=== PATIENT | female | born 1940 | race Caucasian/White ===

== ENCOUNTER 2019-04-04 21:06 | Observation (INO) | payer MEDICARE, SELFPAY ==
--- NOTE | ~2019-04-04 | MR_ITS ---
EXAMINATION: MR brain IAC wo/w con DATE: 04/05/2019 13:05 INDICATION: Vertigo. TECHNIQUE: Magnetic resonance imaging (MRI) of the brain, brainstem, and internal auditory canals was performed without and with 20 mL MultiHance intravenous contrast. Sequences included sagittal and ax ial T1-weighted FSE, axial diffusion-weighted FS EPI, axial T2*-weighted GRE, axial T2-weighted FLAIR Propeller, axial T2-weighted Propeller, small upkgw-my-xnkv coronal FIESTA, small suzuy-ri-ofsx farnaz nal T1-weighted FSE, and small frdul-bv-otgb axial T1-weighted SPGR. Postcontrast sequences included axial T1-weighted FSE, small clkqc-yt-shhp coronal T1-weighted FSE, and small fthkp-fv-etur axial T1- weighted SPGR. Apparent diffusion coefficient (ADC) maps were created. COMPARISON: Head CT 04/04/2019 FINDINGS: There are scattered areas of nonspecific increased T2-weighted signal intensity in the cere bral white matter, which is within normal limits for the patient's age. There is no intracranial hemo rrhage, acute infarction, or abnormal intracranial mass lesion. The ventricles are normal in size. Th e paranasal sinuses are clear. The orbits are normal. The mastoid air cells are normal. The internal auditory canals and inner and middle ears are normal. IMPRESSION: 1. Normal aging brain. Reviewed, dictated and finalized at location A. [employer]ANT IMPRESSION: 1. Normal aging brain.
--- NOTE | ~2019-04-04 | NM_ITS ---
EXAMINATION: NM radha stress w perfusion DATE: 04/05/2019 15:04 INDICATION: Central chest pressure. TECHNIQUE: Rest images were obtained following intravenous administration of 8.9 mCi Tc99m tetrofosmi n (Myoview). The patient was infused intravenously with Lexiscan (regadenoson). Then, 26.7 mCi Tc99m tetrofosmin (Myoview) was administered intravenously, and stress images were obtained. Data was recon structed into short axis and horizontal and vertical long axis SPECT images. Gated SPECT images were also obtained. COMPARISON: None. FINDINGS: There is no definite reversible or fixed perfusion abnormality to suggest ischemia or infar ction. There is no segmental wall motion abnormality. Left ventricular ejection fraction measures > 70%. IMPRESSION: 1. No definite ischemia or infarct. 2. Normal left ventricular ejection fraction measuring >70%. Reviewed, dictated and finalized at location A. SE PACKER
--- NOTE | ~2019-04-04 | XR_ITS ---
XR chest 2V 04/04/2019 21:47 Indication: Midsternal chest pain and dizziness Procedure: 2 view chest Comparison: Comparison to multiple prior studies sequentially, with oldest reviewed study dated 05/03. Findings: Stable cardiomediastinal silhouette. No acute focal pneumonia, edema or effusion. No pleura l effusion, edema or pneumothorax. No focal pneumonia. 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 Impression: 1: No acute cardiopulmonary disease. Reviewed, dictated and finalized at location A. RAL EDUCATION INSTRUCTOR Impression: 1: No acute cardiopulmonary disease.
--- NOTE | ~2019-04-04 | CT_ITS ---
EXAMINATION: CT brain wo con DATE: 04/04/2019 23:41 INDICATION: Dizziness. TECHNIQUE: Computed tomography (CT) of the head was performed without intravenous contrast. The dose- length product was 681.00 mGy-cm. The mA was adjusted according to patient size. Iterative reconstruc tion technique was employed. COMPARISON: CT dated 05/01/2018 FINDINGS: Brain parenchymal volume is normal for age. Normal ehrnandez-white differentiation. No acute int racranial hemorrhage, infarction, mass or mass effect. No ventriculomegaly or midline shift. Basilar cisterns are patent. Paranasal sinuses and mastoids are pneumatized. No depressed skull fractures. Mi dline sagittal images demonstrate a normal corpus callosum and craniovertebral junction. There are sc attered mild periventricular and subcortical white matter changes, most likely related to small vesse l ischemic disease (microangiopathy). IMPRESSION: 1. No acute intracranial abnormality. 2: Chronic age-related findings. Reviewed, dictated and finalized at location A. LINE FIELD OPERATOR
[2019-04-04 21:09] VITALS: BP 112/57; PULSE 94; RESP 16; TEMP 36.2; O2SAT 98
--- NOTE | 2019-04-04 21:09 | ECG_ITS ---
Measurements Intervals [place] Rate: 85 P: -71 NH: 108 QRS: 48 QRSD: 92 T: 21 QT: 332 QTc: 396 Interpretive Statements SINUS RHYTHM ATRIAL COUPLET AND ATRIAL PREMATURE COMPLEXES LOW QRS VOLTAGE IN PRECORDIAL LEADS BASELINE ARTIFACT- I, III, AVR, AVL, AVF ABNORMAL ECG Electronically Signed On 04-05-2019 6:55:03 INSURANCE CLAIM APPROVER by Hung [employer]
[2019-04-04 21:21] LABS: Basophils Absolute Auto 0.1 K/mm3 (0.0-0.1); Basophils Percent Auto 0.6 % (0.2-1.2); Eosinophils Absolute Auto 0.4 K/mm3 (0-0.3); Eosinophils Percent Auto 4.8 % (0-4.4); Hematocrit 42.3 % (37.0-47.0); Hemoglobin 13.6 g/dL (12.0-15.0); Immature Granulocyte Absolute 0.02 K/mm3 (0.00-0.031); Immature Granulocyte Percent A 0.2 % (0-0.5); Lymphocytes Absolute Auto 2.12 K/mm3 (0.9-3.2); Lymphocytes Percent Auto 26.1 % (18.3-44.2); Mean Corpuscular HGB Conc 32.2 g/dl (32-36); Mean Corpuscular Hemoglobin 30.6 pg (26-34); Mean Corpuscular Volume 95.1 fl (80-100); Mean Platelet Volume 11.7 fl (7.4-10.4); Monocytes Absolute Auto 0.6 K/mm3 (0.1-0.6); Monocytes Percent Auto 7.9 % (2.6-8.5); Neutrophils Absolute Auto 4.9 K/mm3 (1.3-6.7); Neutrophils Percent Auto 60.4 % (45.5-73.1); Platelet Count Result 304 k/mm3 (150-375); Red Blood Count 4.45 M/mm3 (4.2-5.4); Red Cell Distribution Width 13.5 % (11.5-14.5); White Blood Count 8.1 K/mm3 (4.5-10.0)
[2019-04-04 21:31] LABS: Prothrombin Time 12.9 Seconds (11.1-14.7)
[2019-04-04 21:32] LABS: Partial Thromboplastin Time 24.1 SECONDS (22.3-36.8)
[2019-04-04 21:33] LABS: Blood Urea Nitrogen 21 mg/dL (7-17); Calcium 10.3 mg/dL (8.4-10.2); Carbon Dioxide 26 mmol/L (22-30); Chloride 100 mmol/L (98-107); Estimated CRCL calculation 46 ml/min; Estimated Glomerular Filt Rate 54; Glucose 159 mg/dL (65-105); Potassium 3.7 mmol/L (3.4-5.0); Sodium 138 mmol/L (137-145)
[2019-04-04 21:45] LABS: Troponin I < 0.012 ng/mL (0.000-0.034)
--- NOTE | 2019-04-04 22:31 | ED.GENADULT ---
HPI - General Adult General Chief complaint: Unspecified Stated complaint: dizzyness Time Seen by Provider: 04/04/19 22:31 Related Data Home Medications Medication Instructions Recorded Confirmed calcium carbonate [Calcium 600] 600 mg PO DAILY 02/19/19 02/19/19 carvedilol 3.125 mg PO BID 02/19/19 02/19/19 gemfibrozil 600 mg PO BID 02/19/19 02/19/19 ssjugbnb-tqgj-jvqhsx-hyalur ac 1 cap PO BID 02/19/19 02/19/19 levothyroxine 75 mcg PO DAILY 02/19/19 02/19/19 lisinopril 10 mg PO DAILY 02/19/19 02/19/19 lovastatin 40 mg PO DAILY 02/19/19 02/19/19 metformin 500 mg PO DAILY 02/19/19 02/19/19 paroxetine HCl 20 mg PO DAILY 02/19/19 02/19/19 Allergies Allergy/AdvReac Type Severity Reaction Status Date / Time niacin Allergy Severe Hives / Verified 04/04/19 21:13 Red Face fluoxetine Allergy Mild Hives Verified 04/04/19 21:13 Sulfa (Sulfonamide Allergy Unknown LIP Verified 04/04/19 21:13 Antibiotics) SWELLING PMFSH Social History Social History Smoking status: Never smoker Second hand tobacco smoke exposure: Yes ( smoked for 36 yrs) Alcohol intake: never Substance use: never Gender identity (if verbalized by the patient): Female Spiritual care concerns: No Agree to blood products: No Course Vital Signs Vital signs: Vital Signs Temperature 36.2 C L 04/04/19 21:09 Pulse Rate 94 04/04/19 21:09 Respiratory Rate 16 04/04/19 21:09 Blood Pressure 112/57 L 04/04/19 21:09 Pulse Oximetry 98 04/04/19 21:09 Temperature 36.2 C L 04/04/19 21:09 Pulse Rate 94 04/04/19 21:09 Respiratory Rate 16 04/04/19 21:09 Blood Pressure 112/57 L 04/04/19 21:09 Pulse Oximetry 98 04/04/19 21:09 Medical Decision Making Vital Signs Vital Signs: Vital Signs Temperature 36.2 C L 04/04/19 21:09 Pulse Rate 94 04/04/19 21:09 Respiratory Rate 16 04/04/19 21:09 Blood Pressure 112/57 L 04/04/19 21:09 Pulse Oximetry 98 04/04/19 21:09 Temperature 36.2 C L 04/04/19 21:09 Pulse Rate 94 04/04/19 21:09 Respiratory Rate 16 04/04/19 21:09 Blood Pressure 112/57 L 04/04/19 21:09 Pulse Oximetry 98 04/04/19 21:09 Lab Data Result diagrams: 04/04/19 21:14 04/04/19 21:14 Labs: Lab Results 04/04/19 04/04/19 04/04/19 Range/Units 21:14 21:14 21:14 WBC 8.1 (4.5-10.0) K/mm3 RBC 4.45 (4.2-5.4) M/mm3 Hgb 13.6 (12.0-15.0) g/dL Hct 42.3 (37.0-47.0) % MCV 95.1 (80-100) fl MCH 30.6 (26-34) pg MCHC 32.2 (32-36) g/dl RDW 13.5 (11.5-14.5) % Plt Count 304 (150-375) k/mm3 MPV 11.7 H (7.4-10.4) fl Immature Gran % (Auto) 0.2 (0-0.5) % Neut % (Auto) 60.4 (45.5-73.1) % Lymph % (Auto) 26.1 (18.3-44.2) % [place] % (Auto) 7.9 (2.6-8.5) % Eos % (Auto) 4.8 H (0-4.4) % Baso % (Auto) 0.6 (0.2-1.2) % Lymph # (Auto) 2.12 (0.9-3.2) K/mm3 [place] # (Auto) 0.6 (0.1-0.6) K/mm3 Eos # (Auto) 0.4 H (0-0.3) K/mm3 Baso # (Auto) 0.1 (0.0-0.1) K/mm3 Abs Immat Gran (auto) 0.02 (0.00-0.031) K/mm3 Absolute Neuts (auto) 4.9 (1.3-6.7) K/mm3 Absolute Nucleated RBC 0.0 (0.0-0.012) K/mm3 Nucleated RBC % 0.0 (0.0-0.2) % PT 12.9 (11.1-14.7) Seconds INR 1.0 APTT 24.1 (22.3-36.8) SECONDS Sodium 138 (137-145) mmol/L Potassium 3.7 (3.4-5.0) mmol/L Chloride 100 (98-107) mmol/L Carbon Dioxide 26 (22-30) mmol/L BUN 21 H D (7-17) mg/dL Creatinine 1.00 (0.7-1.0) mg/dL Estim Creat Clear Calc 46 ml/min Estimated GFR 54 L (59 - ) Glucose 159 H (65-105) mg/dL Calcium 10.3 H (8.4-10.2) mg/dL Troponin I < 0.012 (0.000-0.034) ng/mL Discharge Plan Discharge Prescriptions: No Action metformin 500 mg tablet 500 mg PO DAILY RF: 0 lovastatin 40 mg tablet 40 mg PO DAILY RF: 0 carvedilol 3.125 mg tablet 3.125 mg PO BID RF: 0 levothyroxine 75
--- NOTE | 2019-04-04 22:34 | ED.DIZZY ---
HPI - Dizziness General Chief Complaint: Dizziness Stated Complaint: dizzyness Time Seen by Provider: 04/04/19 22:31 Source: patient and RN notes reviewed Mode of arrival: other Limitations: no limitations History of Present Illness HPI Narrative: Pt is a 78 y/o female who presents to the ED with c/o dizziness that began a few days ago after a headache. Pt notes that her dizziness is worsened whenever she tries to sit up. She describes her dizziness as the room spinning. She notes that her last stress test was 27 years ago. Pt also reports chest pain that radiates to her right arm, but denies a fever. MD elicited complaint: dizziness Onset (ago): day(s) Timing: unsure (still present) Description: room spinning Exacerbating factors: change in body position Associated symptoms: denies other symptoms Related Data Home Medications Medication Instructions Recorded Confirmed calcium carbonate [Calcium 600] 600 mg PO DAILY 02/19/19 02/19/19 carvedilol 3.125 mg PO BID 02/19/19 02/19/19 gemfibrozil 600 mg PO BID 02/19/19 02/19/19 cjefpaue-iuqh-izqsvo-hyalur ac 1 cap PO BID 02/19/19 02/19/19 levothyroxine 75 mcg PO DAILY 02/19/19 02/19/19 lisinopril 10 mg PO DAILY 02/19/19 02/19/19 lovastatin 40 mg PO DAILY 02/19/19 02/19/19 metformin 500 mg PO DAILY 02/19/19 02/19/19 paroxetine HCl 20 mg PO DAILY 02/19/19 02/19/19 Allergies Allergy/AdvReac Type Severity Reaction Status Date / Time niacin Allergy Severe Hives / Verified 04/04/19 21:13 Red Face fluoxetine Allergy Mild Hives Verified 04/04/19 21:13 Sulfa (Sulfonamide Allergy Unknown LIP Verified 04/04/19 21:13 Antibiotics) SWELLING Review of Systems Review of Systems: All systems reviewed & are unremarkable except as noted in HPI and below Constitutional: Constitutional: Denies fever(s) Cardiovascular: Cardiovascular: Reports chest pain (that radiates to her right arm) Neurologic: Reports dizziness PMFSH Social History Social History Smoking status: Never smoker Second hand tobacco smoke exposure: Yes ( smoked for 36 yrs) Alcohol intake: never Substance use: never Gender identity (if verbalized by the patient): Female Spiritual care concerns: No Agree to blood products: No Exam Const: General: no acute distress and alert Orientation/consciousness: patient oriented x3 HENMT: Head: normal to inspection Eyes: Conjunctivae: conjunctivae normal Pupils: Equal, round and reactive pupils present EOM: EOMs intact bilaterally Neck: Neck: normal visual inspection Chest: Chest palpation & inspection: normal inspection of the chest Resp: Effort & Inspection: normal respiratory effort Auscultation: clear to auscultation bilaterally Cardio: Rate: regular rate GI: Auscultation: normal bowel sounds : General: Yes no CVA tenderness Back/Spine/Pelvis: Back: no CVA tenderness Skin: General skin exam: normal color Neuro: General: patient oriented x3 and moves all extremities Extrem: General: normal to inspection Course Course Emergency Course: in patient at this time has no pain she states that this pain is episodic in nature. I discussed EKG, CT and lab findings with the patient and the family. Will admit to the hospital for chest pain rile out. Vital Signs Vital signs: Vital Signs Temperature 36.2 C L 04/04/19 21:09 Pulse Rate 94 04/04/19 21:09 Respiratory Rate 16 04/04/19 21:09 Blood Pressure 112/57 L 04/04/19 21:09 Pulse Oximetry 98 04/04/19 21:09 Temperature 36.2 C L 04/04/19 21:09 Pulse Rate 84 04/04/19 23:06 Respiratory Rate 20 04/04/19 23:06 Blood Pressure 104/53 L 04/04/19 23:06 Pulse Oximetry 94 04/04/19 23:06 MDM - Dizziness Lab Data Result diagrams: 04/04/19 21:14 04/04/19 21:14 Labs: Lab Results 04/04/19 04/04/19 04/04/19 Range/Units 21:14 21:14 21:14 WBC 8.1 (4.5-10.0) K/mm3 RBC 4.45
[2019-04-04] MEDS: ASPIRIN 81 MG CHEWABLE TABLET 324 MG PO (23:02)
[2019-04-04 23:06] VITALS: BP 104/53; PULSE 84; RESP 20; O2SAT 94
[2019-04-05] VITALS (15 sets, daily range): BP systolic 99–153; BP diastolic 44–68; PULSE 73–103; RESP 18–24; TEMP 36.2–36.7; O2SAT 93–99; BMI 39.4
--- NOTE | 2019-04-05 | ECHO_ITS ---
Patient Info Name: Dayanara Bucio Age: 78 years : 1940 Gender: Female Ht: 61 in Wt: 218 lbs BSA: 2.12 m2 HR: 71 bpm BP: 115 / 68 mmHg Heart Rhythm: Sinus Rhythm Technical Quality: Good Exam Date: 04/05/2019 10:29 AM Exam Location: [facility] Pulmonary Patient Status: Outpatient Admit Date: 04/05/2019 Staff Ordering Physician: Adama Stratton MD Inspector Screen Printing: Nicholas Valle RDCS, RT Attending Provider: Samantha Unger DO Referring Physician: Chayito SEGUNDO; Exam Type: CA echo doppler color flow Study Info Indications R07.9 - Chest pain, unspecified Complete two-dimensional, color flow and Doppler transthoracic echocardiogram is performed. Summary 1. Normal left ventricular size with moderate concentric left ventricular hypertrophy. Good overall systolic dysfunction with no focal wall motion abnormalities. The global longitudinal strain is-15% however, suggesting early systolic dysfunction. There is grade 2 diastolic dysfunction present. 2. Left atrial chamber dimension is mildly enlarged. 3. There is trace and pulmonic tricuspid valve regurgitation. 4. Normal sinus rhythm. Left Ventricle Left ventricular chamber dimension is normal. Left ventricular systolic function is normal, estimated at 60-65%. There is moderately increased left ventricular wall thickness. Left ventricular septal wall motion is normal. The left ventricular diastolic function is grade I diastolic dysfunction. Global longitudinal strain is moderately elevated at 15 %. Normal left ventricular size with moderate concentric left ventricular hypertrophy. Good overall systolic dysfunction with no focal wall motion abnormalities. The global longitudinal strain is-15% however, suggesting early systolic dysfunction. There is grade 2 diastolic dysfunction present. Right Ventricle Right ventricular chamber dimension is normal. Right ventricular systolic function is normal. Left Atria Left atrial chamber dimension is mildly enlarged. Right Atria Right atrial chamber dimension is normal. Aortic Valve The aortic valve is trileaflet. There is no aortic valve sclerosis. There is no aortic valve stenosis. There is no aortic valve regurgitation. Pulmonic Valve The pulmonic valve is normal. There is no pulmonic valve stenosis. There is trace pulmonic regurgitation. Mitral Valve The mitral valve has normal leaflets. There is no mitral valve stenosis. There is no mitral valve regurgitation. Tricuspid Valve The tricuspid valve leaflets are normal. There is no significant tricuspid valve stenosis. There is trace and pulmonic tricuspid valve regurgitation. No pulmonary hypertension, estimated pulmonary arterial systolic pressure is Empty. Pericardium/Pleural The pericardium appears normal. There is no pericardial effusion. Inferior Vena Cava Normal inferior vena cava with >50% collapse upon inspiration consistent with Empty right atrial pressure, Empty. Aorta The aortic root size at the sinus of Valsalva is normal. The prox ascending aorta size is normal. Left Ventricular Outflow Tract Name Value Normal LVOT 2D LVOT Diameter 2.0 cm LVOT Doppler
[2019-04-05 00:39] LABS: Troponin I < 0.012 ng/mL (0.000-0.034)
--- NOTE | 2019-04-05 01:57 | ADMGEN ---
This patient, Dayanara Bucio, was admitted to IMU Room 231-01. Patient/family oriented to hospital policies and general routines including ID bracelet, bed and alarms, visiting hours, pain management, procedures, bathroom and other care routines, personal items, smoking policy, room service/diet, and visiting hours. Valuables list has been completed. Information on how to activate the Rapid Response Team has been discussed. Patient/Family are encouraged to report perceived risks to care and to ask questions if they do not understand what they are told or what they should do.
[2019-04-05] MEDS: NITROGLYCERIN OINTMENT 1 INCH DOSE TRANSDERM ×2 (02:03→06:15)
[2019-04-05 03:40] LABS: Troponin I < 0.012 ng/mL (0.000-0.034)
[2019-04-05 07:39] LABS: Glucose Point of Care 106 (65-105)
--- NOTE | 2019-04-05 08:50 | EST_ITS ---
Patient Info Name: Dayanara Bucio Age: 78 years : 1940 Gender: Female Ht: 61 in Wt: 218 lbs BSA: 2.12 m2 Exam Date: 04/05/2019 1:42 PM Exam Location: [facility] Stress Patient Status: Inpatient Admit Date: 04/05/2019 Staff Ordering Physician: Adama Stratton MD Attending Provider: Samantha Unger DO Exercise Technologist: Maria Esther Coffman RDCS Nurse: Leslee Suh, YOVANA, ACNP- Exam Type: CA stress radha w NM Study Info Indications R07.89 - Other chest pain A regadenoson stress test was performed. Summary 1. No abnormal ST-T wave changes with lexiscan. 2. Please correlate with nuclear medicine images, reported separately. Protocol: Lexiscan Stress ECG Details Stage: REST Duration (min): 1 min : 31 sec HR (bpm): 80 SBP (mmHg): 144 DBP (mmHg): 75 Stage: REST Duration (min): 8 min : 23 sec HR (bpm): 78 SBP (mmHg): 144 DBP (mmHg): 75 Stage: STAGE 1 Duration (min): 1 min : 0 sec HR (bpm): 89 SBP (mmHg): 136 DBP (mmHg): 83 Stage: RECOVERY Duration (min): 1 min : 0 sec HR (bpm): 94 SBP (mmHg): 163 DBP (mmHg): 76 Stage: RECOVERY Duration (min): 2 min : 0 sec HR (bpm): 97 SBP (mmHg): 163 DBP (mmHg): 76 Stage: RECOVERY Duration (min): 3 min : 0 sec HR (bpm): 96 SBP (mmHg): 148 DBP (mmHg): 71 Stage: RECOVERY Duration (min): 3 min : 51 sec HR (bpm): 98 SBP (mmHg): 148 DBP (mmHg): 71 Rest HR: 78 bpm Peak HR: 100 bpm Rest Sys BP: 144 mmHg Peak Sys BP: 163 mmHg Max Pred HR: 144 bpm % Max Pred HR: 69 % Target HR: 122 bpm Max RPP: 16,300 bpm*mmHg BP Response: Normal blood pressure response Termination Reason: Completed protocol Cardiac Symptoms: None Total Time: 1 min : 0 sec Rest Myrick BP: 75 mmHg Peak Myrick BP: 76 mmHg Total Dose: 0.4 mg Resting ECG Normal sinus rhythm - normal ECG. Stress ECG No abnormal ST/T wave changes with exercise. Arrhythmias Occasional PACs. Occasional PVCs. Report Signatures
--- NOTE | 2019-04-05 10:10 | PM.IMHP ---
H&P: HPI History of Present Illness Chief complaint: CHEST PAIN DIZZINESS Narrative: Date of visit 04/04/2019 [id number]. Dayanara Bucio is a 78 year old hypertensive type 2 diabetic white female who came to the emergency room with complaints of dizziness and chest pressure. She states that she has had some dizziness for upwards 2 weeks intermittently but the last 2 days it is worsened to the point that any time she changes position or tries to get up she feels like the room is spinning. No nausea, tinnitus, decreased hearing, headache, or change in vision. She also relates that the last 2 days she has noticed some substernal pressure that radiates to her left arm associated with the dizziness but no shortness of breath, nausea, or diaphoresis. Never really had chest pain or dizziness prior to the present illness . Risk factors for coronary disease include hypertension, diabetes, and family history as well as hyperlipidemia Review of Systems Review of Systems: Narrative: Constitutional: Weight is steady appetite good and no fever chills EYE: No double vision or scotoma Mouth no pharyngitis laryngitis Pulmonary no short of breath wheezing or cough. Had the upper respiratory infection in February that totally cleared CV as per present illness no palpitations pedal edema GI no melena hematochezia occasional loose stool no dysuria no hematuria Muscle skeletal no protected joint discomfort other than knees difficulty ambulating Integument no skin breakdown rashes Psych no depression or anxiety per se The remainder review of systems if not documented here were evaluated and found to be negative [facility] Social History Social History Smoking status: Never smoker Second hand tobacco smoke exposure: Yes ( smoked for 36 yrs) Alcohol intake: never Substance use: never Gender identity (if verbalized by the patient): Female Spiritual care concerns: No Agree to blood products: Yes Meds Home Medications and Allergies Home Medications Medication Instructions Recorded Confirmed Type carvedilol 3.125 mg PO BID 02/19/19 04/05/19 History gemfibrozil 600 mg PO BID 02/19/19 04/05/19 History ootpdtyc-kosb-mjvbve-hyalur ac 3 cap PO DAILY 02/19/19 04/05/19 History levothyroxine 75 mcg PO DAILY 02/19/19 04/05/19 History lisinopril 10 mg PO DAILY 02/19/19 04/05/19 History lovastatin 40 mg PO HS 02/19/19 04/05/19 History metformin 500 mg PO BID 02/19/19 04/05/19 History paroxetine HCl 20 mg PO DAILY 02/19/19 04/05/19 History acetaminophen 650 mg PO Q4H PRN 04/05/19 04/05/19 History banana ypafee-i-eiqiqvpusycva. 1 ea PO TID PRN 04/05/19 04/05/19 History [Banatrol Plus] calcium carbonate-vitamin D3 1 tablet PO DAILY 04/05/19 04/05/19 History [Calcium 600 + D(3)] cranberry extract 425 mg PO DAILY 04/05/19 04/05/19 History melatonin 10 mg PO HS 04/05/19 04/05/19 History Allergies Allergy/AdvReac Type Severity Reaction Status Date / Time niacin Allergy Severe Hives / Verified 04/04/19 21:13 Red Face fluoxetine Allergy Mild Hives Verified 04/04/19 21:13 Sulfa (Sulfonamide Allergy Unknown LIP Verified 04/04/19 21:13 Antibiotics) SWELLING Vital Signs Vital Signs - 24 hr 04/04/19 21:09 04/04/19 23:06 04/05/19 01:15 Temperature 36.2 C L Pulse Rate 94 84 86 Respiratory Rate 16 20 23 H Blood Pressure 112/57 L 104/53 L 141/52 H Pulse Oximetry 98 94 96 04/05/19 01:30 04/05/19 01:55 04/05/19 02:00 Temperature 36.7 C Pulse Rate 83 89 94 Respiratory Rate 21 H 18 Blood Pressure 153/62 H 111/65 Pulse Oximetry 96 98 04/05/19 04:00 04/05/19 06:00 04/05/19 06:14 Temperature 36.7 C Pulse Rate 80 76 Respiratory Rate 18 Blood Pressure 99/44 L 117/45 L Pulse Oximetry 99 04/05/19 07:52 04/05/19 07:53 04/05/19 07:55 Temperature 36.6 C 36.2 C L 36.4 C L Pulse Rate 74 82 82 Respiratory Rate 22 H 22 H 24 H Blood Pressure 113/61 125/64 115/68 Pulse Oxim
[2019-04-05 11:18] LABS: Thyroid Stimulating Hormone 0.757 uIU/mL (0.465-4.680)
[2019-04-05 15:13] LABS: Glucose Point of Care 172 (65-105)
[2019-04-05] MEDS: metFORMIN HCL 500 MG TABLET PO ×2 (15:33→17:16)
[2019-04-05] MEDS: lisinopriL 10 MG TABLET PO (15:33)
[2019-04-05] MEDS: gemfibroziL 600 MG TABLET PO (15:33)
[2019-04-05] MEDS: carvediloL 3.125 MG TABLET PO (15:33)
[2019-04-05] MEDS: LEVOTHYROXINE SODIUM 75 MCG TABLET PO (15:33)
[2019-04-05] MEDS: PAROXETINE 20 MG TABLET PO (15:33)
--- NOTE | 2019-04-05 16:00 | PM.DS ---
DS: Diagnosis Admitting Diagnosis Admitting Diagnosis: Chest pain, unspecified Discharge Diagnosis (1) Chest pain: Qualifiers: Chest pain type: unspecified Qualified Code(s): R07.9 - Chest pain, unspecified Code(s): R07.9 - Chest pain, unspecified Status: Acute Assessment and Plan: With a pressure sensation radiating to arm in her risk factors obtained a Lexiscan nuclear stress test which had no revesible defects and EF of 70%.. Troponins are negative and repeated echocardiogram still pending at discharge (2) Dizziness: Code(s): R42 - Dizziness and giddiness Status: Acute Assessment and Plan: Dizziness appears to be simple positional vertigo. MRI with IAC views negative. TSH normal but b12 242 so 1000 microgram IM given (3) HTN (hypertension): Code(s): I10 - Essential (primary) hypertension Status: Acute Assessment and Plan: Pressure well controlled continue her lisinopril and Coreg (4) Diabetes mellitus: Code(s): E11.9 - Type 2 diabetes mellitus without complications Status: Acute Assessment and Plan: Blood sugars low 100s. Continue her metformin DS: Summary Hospital Course Hospital Course: 78-year-old hypertensive type 2 diabetic admitted chest pressure and vertigo. Troponins were negative and nuclear stress test revealed normal ejection fraction with no ischemia. MRI of the brain normal. B12 slightly alone given 1000 micro g IM Echocardiogram pending at discharge in show follow-up with Dr. Gardiner primary care within a week Time Spent with Patient Time attestation: Total time spent providing and/or coordinating discharge services: 35 minutes DS: Data Data Completed and Pending Labs on day of discharge: Labs from last 24 hours 04/05/19 04/05/19 04/05/19 15:07 07:36 02:43 WBC RBC Hgb Hct MCV MCH MCHC RDW Plt Count MPV Immature Gran % (Auto) Neut % (Auto) Lymph % (Auto) [place] % (Auto) Eos % (Auto) Baso % (Auto) Lymph # (Auto) [place] # (Auto) Eos # (Auto) Baso # (Auto) Abs Immat Gran (auto) Absolute Neuts (auto) Absolute Nucleated RBC Nucleated RBC % PT INR APTT Sodium Potassium Chloride Carbon Dioxide BUN Creatinine Estim Creat Clear Calc Estimated GFR Glucose POC Capillary Glucose 172 H 106 Calcium Troponin I < 0.012 Vitamin B12 TSH 04/05/19 04/05/19 04/05/19 00:10 00:10 00:10 WBC RBC Hgb Hct MCV MCH MCHC RDW Plt Count MPV Immature Gran % (Auto) Neut % (Auto) Lymph % (Auto) [place] % (Auto) Eos % (Auto) Baso % (Auto) Lymph # (Auto) [place] # (Auto) Eos # (Auto) Baso # (Auto) Abs Immat Gran (auto) Absolute Neuts (auto) Absolute Nucleated RBC Nucleated RBC % PT INR APTT Sodium Potassium Chloride Carbon Dioxide BUN Creatinine Estim Creat Clear Calc Estimated GFR Glucose POC Capillary Glucose Calcium Troponin I < 0.012 Vitamin B12 246.0 TSH 0.757 04/04/19 04/04/19 04/04/19 21:14 21:14 21:14 WBC 8.1 RBC 4.45 Hgb 13.6 Hct 42.3 MCV 95.1 MCH 30.6 MCHC 32.2 RDW 13.5 Plt Count 304 MPV 11.7 H Immature Gran % (Auto) 0.2 Neut % (Auto) 60.4 Lymph % (Auto) 26.1 [place] % (Auto) 7.9 Eos % (Auto) 4.8 H Baso % (Auto) 0.6 Lymph # (Auto) 2.12 [place] # (Auto) 0.6 Eos # (Auto) 0.4 H Baso # (Auto) 0.1 Abs Immat Gran (auto) 0.02 Absolute Neuts (auto) 4.9 Absolute Nucleated RBC 0.0 Nucleated RBC % 0.0 PT 12.9 INR 1.0 APTT 24.1 Sodium 138 Potassium 3.7 Chloride 100 Carbon Dioxide 26 BUN 21 H D Creatinine 1.00 Estim Creat Clear Calc 46 Estimated GFR 54 L Glucose 159 H POC Capillary Glucose Calcium 10.3 H Troponin I < 0
[2019-04-05] MEDS: CYANOCOBALAMIN INJ 1,000 MCG/ML VIAL 1000 MCG IM (17:15)
== END 2019-04-05 18:40 | disposition home or self-care (01) ==
LOC: ANHED 04-05 00:41 → ANHIMU 04-05 01:01
PROVIDERS: Emergency Medicine; Admitting Provider Internal Medicine; Emergency Provider Family Medicine; PCP Family Medicine Adolescent Medicine; Visit Provider Internal Medicine
DX: R07.9 Chest pain, unspecified (principal); R42 Dizziness and giddiness; I10 Essential (primary) hypertension; E11.9 Type 2 diabetes mellitus without complications; Z79.899 Other long term (current) drug therapy
CPT/HCPCS: 36415; 70450; 70553; 71046; 78452; 80048; 82607; 84443; 84484; 85025; 85610; 85730; 93005; 93017; 93306; 96372; 99285; A9270; A9502; A9577; G0378; J2785; J3420

== ENCOUNTER 2019-05-17 07:26 | Outpatient (CLI) | payer MEDICARE, SELFPAY ==
--- NOTE | 2019-05-30 10:58 | SLEEP_ITS ---
Basic Nocturnal Polysomnogram DATE OF STUDY: 05/17/2019 ORDERING PHYSICIAN: Dr. Edward Wall. REASON FOR THIS STUDY: Excessive sleepiness, loud snoring, no energy. HISTORY: This patient is a 78-year-old female, 61 inches tall, weighing 212 pounds with a body mass index of 40.1. She is disabled. She reports that she sleeps all the time, snores loudly and has no energy. Her daughter has obstructive sleep apnea syndrome. She occasionally awakens from sleep feeling short of breath. She constantly awakens at night with heartburn and belching. She frequently snores and it is frequently loud enough that others complain about it. She rarely has trouble sleeping with the cold. She does not gasp for breath at night. She occasionally has breathing problems witnessed by others. She does not sweat excessively at night and does not notice her heart pounding or beating irregularly at night. She constantly falls asleep during the day, frequently involuntarily, but never while driving. She does not fall asleep during physical effort. She does not have loss of muscle tone with strong emotion. She does not feel paralyzed on waking or falling asleep. She frequently has vivid dreamlike scenes upon awakening or falling asleep. She is never afraid to go to sleep. She frequently has nightmares, frequently remembers her dreams. She constantly has racing thoughts and feelings of sadness or depression. She frequently has anxiety. She does not have muscular tension. She rarely notices parts of her body jerking. She does not kick at night. She does frequently have crawly achy feelings in her legs. She denies leg pain during sleep and she denies morning jaw pain. She does not grind her teeth during sleep. She frequently is bothered by pain during the day, rarely is awakened with pain at night. She does not wake up feeling stiff in the morning with sore achy muscles. She does not wake up with pain in her neck and spine. She has fatigue, nightmares, and depression. Normal bedtime is 11 p.m., taking x2 hours to fall asleep, frequently waking to go to the bathroom at night. She awakens at 1 p.m. She estimates 12-14 hours of sleep, but it is fragmented and she is not asleep the entire time. Weekend schedule is the same. She does take naps. A short nap is not refreshed. MEDICATIONS: 1. Carvedilol 3.125 mg twice a day. 2. Calcium carbonate 1 tablet daily. 3. Cranberry Fruit 1 capsule daily. 4. Gemfibrozil 600 mg twice a day. 5. Glucosamine and chondroitin 3 tablets by mouth once a day. 6. Levothyroxine 75 mcg daily. 7. Lisinopril 10 mg a day. 8. Melatonin 2 tablets at bedtime. 9. Metformin 500 mg twice a day. 10. Lovastatin 40 mg a day. 11. Paroxetine 20 mg a day. MEDICAL COMORBIDITIES: 1. Hypertension. 2. Chronic kidney disease, stage 3. 3. Hypothyroidism. 4. Hyperlipidemia. 5. Diabetes mellitus, type 2. 6. Dizziness. HABITS: Never smoked tobacco. She does drink caffeine. No alcohol. DESCRIPTION OF THE STUDY: On the [place] Sleepiness Scale, her reported score is 5. However, her history suggests that is much higher. This was conducted as a full night basic nocturnal polysomnogram using the [employer] Multiple Channel System including EOG, EEG, submental EMG, EKG, nasal and oral airflow using thermistors and nasal pressure sensors, chest and abdominal belts, body position data, and pulse oximetry. The study was scored using CMS guidelines. Duration of the study is 466.1 minutes. Sleep time was 246.5 minutes. Sleep efficiency 52.9%. Sleep latency 20.9 minutes. REM latency prolonged, 262 minutes. She had 39 awakenings and spent 44.6% of the study, awake after sleep onset 198.7 minutes. Sleep architecture showed 7.4% stage 1 sleep, 39.4% stage 2 sleep,
== END 2019-05-17 07:27 | disposition home or self-care (01) ==
LOC: ANHCSM 07:31
PROVIDERS: PCP Family Medicine Adolescent Medicine; Visit Provider Family Medicine Adolescent Medicine
DX: R06.83 Snoring (principal); R53.83 Other fatigue
CPT/HCPCS: 95811

== ENCOUNTER 2019-12-12 01:27 | Outpatient (CLI) | payer MEDICARE, SELFPAY ==
[2019-12-12 18:11] LABS: SARS-CoV-2 RNA PCR Negative
== END 2019-12-12 01:28 | disposition home or self-care (01) ==
LOC: ANHCOVIDDT 01:28
PROVIDERS: PCP Family Medicine Adolescent Medicine; Visit Provider Internal Medicine Critical Care Medicine
DX: Z20.828 Contact with and (suspected) exposure to other viral communicable diseases (principal)
CPT/HCPCS: 87635; C9803; U0003

== ENCOUNTER 2019-12-14 08:02 | Outpatient (CLI) | payer MEDICARE, SELFPAY ==
--- NOTE | 2019-12-28 15:31 | WPDSLEEPSTUD ---
Sleep Study Date of Study: 12/14/19 Ordering Provider: Edward Wall MD Interpreting Physician: Kecia Porras MD Sleep Study Type: CPAP Titration Height: 1.55 m Weight: 96.162 kg Body Mass Index: 40.0 Neck Circumference: 48.26 cm [place]: 5 Reason for Sleep Study Prior home sleep test on May 17, 2019 showing moderate obstructive sleep apnea AHI 27.7 which is severe during REM, REM AHI 63.8. She also had periodic limb movement disorder with an limb movement index of 230.5 which may be related to diabetes pain or medications. 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 Sleep History This patient is a 79-year-old female, 61 inches tall, weighing 212 pounds with a body mass index of 40.1. She is disabled. She sleeps constantly, snores loudly and has no energy. Her daughter has obstructive sleep apnea syndrome. She occasionally awakens from sleep feeling short of breath. She constantly awakens at night with heartburn and belching. She frequently snores and it is frequently loud enough that others complain about it. She rarely has trouble sleeping with the cold. She does not gasp for breath at night. She occasionally has breathing problems witnessed by others. She does not sweat excessively at night and does not notice her heart pounding or beating irregularly at night. She constantly falls asleep during the day, frequently involuntarily, but never while driving. She does not fall asleep during physical effort. She does not have loss of muscle tone with strong emotion. She does not feel paralyzed on waking or falling asleep. She frequently has vivid dreamlike scenes upon awakening or falling asleep. She is never afraid to go to sleep. She frequently has nightmares, frequently remembers her dreams. She constantly has racing thoughts and feelings of sadness or depression. She frequently has anxiety. She does not have muscular tension. She rarely notices parts of her body jerking. She does not kick at night. She does frequently have crawly achy feelings in her legs. She denies leg pain during sleep and she denies morning jaw pain. She does not grind her teeth during sleep. She frequently is bothered by pain during the day, rarely is awakened with pain at night. She does not wake up feeling stiff in the morning with sore achy muscles. She does not wake up with pain in her neck and spine. She has fatigue, nightmares, and depression. Normal bedtime is 11 p.m., taking 2 hours to fall asleep, frequently waking to go to the bathroom at night. She awakens at 1 p.m. She estimates 12-14 hours of sleep, but it is fragmented and she is not asleep the entire time. Weekend schedule is the same. She does take naps. A short nap is not refreshing. HABITS: Never smoked tobacco. She does drink caffeine. No alcohol. [facility] Past Medical History Medical History (Updated 12/28/19 @ 15:57 by Kecia Porras MD) Anxiety Arthritis Bronchospasm with bronchitis, acute Chronic kidney disease Depression Diabetes mellitus Diverticulitis HLD (hyperlipidemia) HTN (hypertension) Hypothyroidism Hypoxemia Infected sebaceous cyst of skin MRSA (methicillin resistant staph aureus) culture positive Obstructive sleep apnea Surgical History Surgical History H/O thyroidectomy H/O toe surgery Family History Family History Father Cerebrovascular accident Family history of malignant neoplasm Patient's father is Mother Family history of coronary artery disease Family history of malignant neoplasm Patient's mother is Sibling Patient's sister is in good health Family history of malignant neoplasm Patient's brother is Social History Social History Smoking status: Never smoker Second hand tobacco smoke exposure:
[2019-12-28 17:51] VITALS: BMI 40.0
== END 2019-12-14 08:03 | disposition home or self-care (01) ==
LOC: ANHCSM 08:09
PROVIDERS: PCP Family Medicine Adolescent Medicine; Visit Provider Family Medicine Adolescent Medicine
DX: G47.33 Obstructive sleep apnea (adult) (pediatric) (principal); G47.61 Periodic limb movement disorder; I12.9 Hypertensive chronic kidney disease with stage 1 through stage 4 chronic kidney disease, or unspecified chronic kidney disease; N18.30 Chronic kidney disease, stage 3 unspecified; E11.22 Type 2 diabetes mellitus with diabetic chronic kidney disease; E03.9 Hypothyroidism, unspecified; E78.5 Hyperlipidemia, unspecified; R42 Dizziness and giddiness
CPT/HCPCS: 95811

== ENCOUNTER 2020-02-06 18:32 | Emergency (ER) | payer MEDICARE, SELFPAY ==
--- NOTE | ~2020-02-06 | XR_ITS ---
EXAMINATION: XR knee RT 3V DATE: 02/06/2020 19:28 INDICATION: Right knee pain, bruising and swelling TECHNIQUE: Anteroposterior, oblique and crosstable lateral views of the right knee were obtained COMPARISON: None. FINDINGS: Alignment is normal. No fracture. Tricompartmental osteoarthritis at the right knee with prominent m arginal osteophytes in all 3 compartments and at least moderate joint space narrowing in the lateral and patellofemoral compartments although severity of joint space narrowing can be underestimated on n onweightbearing imaging. Unchanged prominent heterotopic ossicle versus less likely loose osteochondr al body along the cephalad margin of the patella. No right knee joint effusion. Soft tissues are unre markable. IMPRESSION: 1. At least moderate tricompartmental osteoarthritis at the right knee. No acute osseous abnormality. Reviewed, dictated and finalized at location [facility] [employer] IMPRESSION: 1. At least moderate tricompartmental osteoarthritis at the right knee. No acut e osseous abnormality.
[2020-02-06 18:38] VITALS: BP 153/82; PULSE 95; RESP 15; TEMP 36.9; O2SAT 96
--- NOTE | 2020-02-06 19:22 | ED.LOWEXIN ---
HPI - Extremity Injury (Lower) General Chief Complaint: Extremity Injury, Lower Stated Complaint: r knee bruising and pain Time Seen by Provider: 02/06/20 19:07 Source: patient Mode of arrival: ambulatory Limitations: no limitations History of Present Illness HPI Narrative: Patient 79-year-old female complaining of right knee bruising and pain that started proximately 2 days ago. Patient states her pain is a 4 out of 10 dull, nonradiating, worse with movement. Patient denies being on any oral anticoagulants. Patient denies any injury to the area. Patient denies cold extremity. Denies calf pain. Denies cp or sob. Related Data Home Medications Medication Instructions Recorded Confirmed carvedilol 3.125 mg PO BID 02/19/19 04/05/19 gemfibrozil 600 mg PO BID 02/19/19 04/05/19 xdfrufos-gbyi-xpksvz-hyalur ac 3 cap PO DAILY 02/19/19 04/05/19 levothyroxine 75 mcg PO DAILY 02/19/19 04/05/19 lisinopril 10 mg PO DAILY 02/19/19 04/05/19 lovastatin 40 mg PO HS 02/19/19 04/05/19 metformin 500 mg PO BID 02/19/19 04/05/19 paroxetine HCl 20 mg PO DAILY 02/19/19 04/05/19 Banatrol Plus 1 ea PO TID PRN 04/05/19 04/05/19 acetaminophen 650 mg PO Q4H PRN 04/05/19 04/05/19 calcium carbonate-vitamin D3 1 tablet PO DAILY 04/05/19 04/05/19 [Calcium 600 + D(3)] cranberry extract 425 mg PO DAILY 04/05/19 04/05/19 melatonin 10 mg PO HS 04/05/19 04/05/19 Allergies Allergy/AdvReac Type Severity Reaction Status Date / Time niacin Allergy Severe Hives / Verified 02/06/20 18:45 Red Face fluoxetine Allergy Mild Hives Verified 02/06/20 18:45 Sulfa (Sulfonamide Allergy Unknown LIP Verified 02/06/20 18:45 Antibiotics) SWELLING Review of Systems Review of Systems: All systems reviewed & are unremarkable except as noted in HPI and below Constitutional: Constitutional: Denies body ache(s), Denies chills, Denies excessive sweating, Denies fatigue, Denies fever(s), Denies headache(s), Denies lethargy, Denies malaise, Denies weakness and Denies weight loss Eyes: Eyes: Denies blurry vision, Denies change in vision and Denies loss of vision ENT: Denies dizziness, Denies ear discharge, Denies headache(s), Denies lip swelling, Denies epistaxis, Denies nasal congestion, Denies neck pain, Denies throat swelling and Denies tongue swelling Cardiovascular: Cardiovascular: Denies chest pain, Denies chest pain at rest, Denies chest pain with activity, Denies diaphoresis, Denies rapid heart rate, Denies edema, Denies irregular heart rhythm, Denies lightheadedness, Denies palpitations, Denies dyspnea and Denies dyspnea on exertion Respiratory: Respiratory: Denies chest congestion, Denies cough, Denies hemoptysis, Denies dyspnea and Denies dyspnea on exertion Gastrointestinal: Gastrointestinal: Denies abdominal pain, Denies melena, Denies hematochezia, Denies diarrhea, Denies nausea, Denies vomiting and Denies hematemesis Musculoskeletal: Musculoskeletal: Denies abnormal gait, Denies deformity, Denies neck pain and Denies numbness Neurologic: Denies Abnormal speech present, Denies abnormal gait, Denies confusion, Denies dizziness, Denies headache(s), Denies focal weakness, Denies loss of vision, Denies numbness, Denies Other visual disturbances, Denies Sensory deficit (Neuro) and Denies weakness Psychiatric: Psychiatric: Denies confusion, Denies depression, Denies auditory hallucinations, Denies homicidal ideation and Denies suicidal ideation Endocrine: Endocrine: Denies cold intolerance, Denies excessive sweating, Denies fatigue, Denies heat intolerance and Denies palpitations Hematologic/Lymphatic: Hematologic/Lymphatic: Denies easy bleeding and Denies easy bruising Allergic/Immunologic: Allergic/Immunologic: Denies lip swelling, Denies throat swelling and Denies tongue swelling PMFSH Past Medical History Medical History (Updated 02/06/20 @ 20:05 by Carlos Bowman MD) Anxiety Arthritis Bronchospasm with bronchitis, acute Chronic kidney disease Depression
[2020-02-06 19:34] LABS: Basophils Absolute Auto 0.1 K/mm3 (0.0-0.1); Basophils Percent Auto 0.7 % (0.2-1.2); Eosinophils Absolute Auto 0.8 K/mm3 (0-0.3); Eosinophils Percent Auto 7.8 % (0-4.4); Hemoglobin 12.9 g/dL (12.0-15.0); Immature Granulocyte Absolute 0.03 K/mm3 (0.00-0.031); Immature Granulocyte Percent A 0.3 % (0-0.5); Lymphocytes Absolute Auto 2.14 K/mm3 (0.9-3.2); Lymphocytes Percent Auto 19.9 % (18.3-44.2); Mean Corpuscular HGB Conc 32.3 g/dl (32-36); Mean Corpuscular Hemoglobin 31.4 pg (26-34); Mean Corpuscular Volume 97.3 fl (80-100); Mean Platelet Volume 10.8 fl (7.4-10.4); Monocytes Absolute Auto 1.2 K/mm3 (0.1-0.6); Monocytes Percent Auto 11.3 % (2.6-8.5); Neutrophils Absolute Auto 6.4 K/mm3 (1.3-6.7); Platelet Count Result 346 k/mm3 (150-375); Red Blood Count 4.11 M/mm3 (4.2-5.4); White Blood Count 10.7 K/mm3 (4.5-10.0)
[2020-02-06 19:43] LABS: Prothrombin Time 13.4 Seconds (11.1-14.7)
[2020-02-06 19:44] LABS: Partial Thromboplastin Time 22.9 SECONDS (22.3-36.8)
[2020-02-06 19:47] LABS: Alanine Aminotransferase 15 U/L (4-35); Albumin Level 4.1 g/dL (3.5-5.1); Alkaline Phosphatase 91 U/L (38-126); Anion Gap 9 mmol/L (8-16); Aspartate Amino Transferase 33 U/L (14-36); Bilirubin,Total 0.5 mg/dL (0.2-1.3); Blood Urea Nitrogen 31 mg/dL (7-17); Calcium 9.7 mg/dL (8.4-10.2); Carbon Dioxide 28 mmol/L (22-30); Chloride 107 mmol/L (98-107); Estimated CRCL calculation 40 ml/min; Estimated Glomerular Filt Rate 48; Glucose 92 mg/dL (65-105); Potassium 4.4 mmol/L (3.4-5.0); Sodium 144 mmol/L (137-145)
[2020-02-06 20:39] VITALS: BP 127/56; PULSE 86; RESP 18; TEMP 36.8; O2SAT 94
== END 2020-02-06 20:41 | disposition home or self-care (01) ==
PROVIDERS: Emergency Provider Emergency Medicine; PCP Family Medicine Adolescent Medicine
DX: S80.01XA Contusion of right knee, initial encounter (principal); E89.0 Postprocedural hypothyroidism; E11.22 Type 2 diabetes mellitus with diabetic chronic kidney disease; I12.9 Hypertensive chronic kidney disease with stage 1 through stage 4 chronic kidney disease, or unspecified chronic kidney disease; N18.9 Chronic kidney disease, unspecified; M17.11 Unilateral primary osteoarthritis, right knee; E78.5 Hyperlipidemia, unspecified; Z86.14 Personal history of Methicillin resistant Staphylococcus aureus infection; F41.9 Anxiety disorder, unspecified; F32.9 Major depressive disorder, single episode, unspecified; G47.33 Obstructive sleep apnea (adult) (pediatric); Z79.84 Long term (current) use of oral hypoglycemic drugs; X58.XXXA Exposure to other specified factors, initial encounter
CPT/HCPCS: 36415; 73562; 80053; 85025; 85610; 85730; 99283

== ENCOUNTER 2020-02-07 08:00 | Outpatient (CLI) | payer MEDICARE, SELFPAY ==
--- NOTE | ~2020-02-07 | US_ITS ---
EXAMINATION: US venous doppler LE RT DATE: 02/07/2020 08:41 INDICATION: Right lower limb pain. TECHNIQUE: Grayscale ultrasound images without and with compression and Doppler ultrasound images of the right lower extremity veins were obtained. COMPARISON: None. FINDINGS: The visualized portions of right common femoral vein, profunda (deep) femoral vein, femoral vein, pop liteal vein, peroneal veins, posterior tibial veins, and greater saphenous vein outflow are patent. IMPRESSION: 1. No deep venous thrombosis. Reviewed, dictated and finalized at location [facility] [employer]
== END 2020-02-07 08:01 | disposition home or self-care (01) ==
LOC: ANHIMG 08:06
PROVIDERS: PCP Family Medicine Adolescent Medicine; Visit Provider Family Medicine Adolescent Medicine
DX: M79.661 Pain in right lower leg (principal)
CPT/HCPCS: 93971

== ENCOUNTER 2020-05-23 08:15 | Outpatient (CLI) | payer MEDICARE, MEDICAID, SELFPAY ==
--- NOTE | 2020-05-23 09:10 | ECG_ITS ---
Measurements Intervals [place] Rate: 86 P: -28 MN: 160 QRS: 70 QRSD: 72 T: 58 QT: 339 QTc: 407 Interpretive Statements SINUS RHYTHM ATRIAL PREMATURE COMPLEX BASELINE ARTIFACT- I, II, III, AVR, AVL, AVF, V1-V6 BORDERLINE ECG Electronically Signed On 05-23-2020 10:56:07 CDT by Hung To D.O.
[2020-05-23 09:55] LABS: Basophils Absolute Auto 0.1 K/mm3 (0.0-0.1); Basophils Percent Auto 0.8 % (0.2-1.2); Eosinophils Absolute Auto 0.3 K/mm3 (0-0.3); Eosinophils Percent Auto 3.6 % (0-4.4); Hematocrit 44.8 % (37.0-47.0); Hemoglobin 14.3 g/dL (12.0-15.0); Immature Granulocyte Absolute 0.02 K/mm3 (0.00-0.031); Immature Granulocyte Percent A 0.2 % (0-0.5); Lymphocytes Absolute Auto 2.38 K/mm3 (0.9-3.2); Lymphocytes Percent Auto 28.6 % (18.3-44.2); Mean Corpuscular HGB Conc 31.9 g/dl (32-36); Mean Corpuscular Volume 93.9 fl (80-100); Mean Platelet Volume 11.2 fl (7.4-10.4); Monocytes Absolute Auto 0.8 K/mm3 (0.1-0.6); Monocytes Percent Auto 9.7 % (2.6-8.5); Neutrophils Absolute Auto 4.7 K/mm3 (1.3-6.7); Neutrophils Percent Auto 57.1 % (45.5-73.1); Platelet Count Result 318 k/mm3 (150-375); Red Blood Count 4.77 M/mm3 (4.2-5.4); Red Cell Distribution Width 12.9 % (11.5-14.5); White Blood Count 8.3 K/mm3 (4.5-10.0)
[2020-05-23 10:01] LABS: Albumin Level 4.1 g/dL (3.5-5.1); Urine Cotinine NEGATIVE
[2020-05-23 10:05] LABS: Anion Gap 10 mmol/L (8-16); Blood Urea Nitrogen 21 mg/dL (7-17); Calcium 9.3 mg/dL (8.4-10.2); Carbon Dioxide 26 mmol/L (22-30); Chloride 106 mmol/L (98-107); Estimated Glomerular Filt Rate > 60; Glucose 116 mg/dL (65-105); Potassium 4.1 mmol/L (3.4-5.0); Sodium 142 mmol/L (137-145)
[2020-05-23 10:26] LABS: Hemoglobin A1C 5.7 % (<5.7)
== END 2020-05-23 08:16 | disposition home or self-care (01) ==
LOC: ANHSURGERY 08:22
PROVIDERS: Anesthesiology; PCP Family Medicine Adolescent Medicine; Visit Provider Orthopaedic Surgery
DX: M17.11 Unilateral primary osteoarthritis, right knee (principal); E11.9 Type 2 diabetes mellitus without complications; Z01.818 Encounter for other preprocedural examination; R94.31 Abnormal electrocardiogram [ECG] [EKG]
CPT/HCPCS: 36415; 80048; 80307; 82040; 83036; 85025; 86850; 86900; 86901; 93005

== ENCOUNTER → 2020-05-26 00:16 | Outpatient (CLI) | payer MEDICARE, MEDICAID, SELFPAY ==
[2020-05-26 19:13] LABS: SARS-CoV-2 RNA PCR Positive
== END ==
PROVIDERS: PCP Family Medicine Adolescent Medicine; Visit Provider Orthopaedic Surgery
DX: Z01.812 Encounter for preprocedural laboratory examination (principal); U07.1 COVID-19
CPT/HCPCS: C9803; U0003; U0005

== ENCOUNTER 2020-06-27 02:50 | Day surgery (SDC) | payer MEDICARE, MEDICAID, SELFPAY ==
[2020-05-23 07:56] VITALS: BP 144/74; PULSE 88; RESP 20; TEMP 36.7; O2SAT 94
[2020-05-23 08:45] VITALS: BMI 38.2
--- NOTE | 2020-05-24 10:09 | PM.IMHP ---
H&P: HPI History of Present Illness Date/Time: 05/24/20 10:09 The patient is a 79-year-old female who presents with right knee pain due to primary osteoarthritis. The patient has a chronic ongoing history of pain localized to right knee this is due to degenerative changes. She has aching pain worse with activity somewhat relieved by rest. She has trouble squatting kneeling twisting or turning is limited in standing or walking for long periods. X-rays do show advanced primary osteoarthritis she notes limitation of motion mechanical symptoms and crepitation with occasional swelling as well. Despite cortisone therapy and anti-inflammatories symptoms continue. At this point the patient has discussed further treatment options in detail with Dr. Fajardo she would now like to proceed with right total knee arthroplasty. Chief Complaint: Right knee pain due to primary osteoarthritis. Review of Systems Review of Systems: All systems reviewed & are unremarkable except as noted in HPI and below PMFSH Past Medical History Medical History Anxiety Arthritis Bronchospasm with bronchitis, acute Chronic kidney disease Depression Diabetes mellitus Diverticulitis HLD (hyperlipidemia) HTN (hypertension) Hypothyroidism Hypoxemia Infected sebaceous cyst of skin MRSA (methicillin resistant staph aureus) culture positive Obstructive sleep apnea Surgical History Surgical History H/O thyroidectomy H/O toe surgery Family History Family History Father Cerebrovascular accident Family history of malignant neoplasm Patient's father is Mother Family history of coronary artery disease Family history of malignant neoplasm Patient's mother is Sibling Patient's sister is in good health Family history of malignant neoplasm Patient's brother is Social History Social History Smoking status: Never smoker Second hand tobacco smoke exposure: No Alcohol intake: never Substance use: never Substance use type: does not use Additional living arrangements comments: DAUGHTER (HELENA) LIV[facility] IN [facility] Gender identity (if verbalized by the patient): Female Spiritual care concerns: No Agree to blood products: Yes Meds Home Medications and Allergies Home Medications Medication Instructions Recorded Confirmed Type carvedilol 3.125 mg PO BID 02/19/19 05/23/20 History gemfibrozil 600 mg PO BID 02/19/19 05/23/20 History tssomrts-iwre-hyjeey-hyalur ac 3 cap PO DAILY 02/19/19 05/23/20 History levothyroxine 75 mcg PO HS 02/19/19 05/23/20 History lisinopril 10 mg PO DAILY 02/19/19 05/23/20 History metformin 500 mg PO BID 02/19/19 05/23/20 History paroxetine HCl 20 mg PO HS 02/19/19 05/23/20 History acetaminophen 650 mg PO Q4H PRN 04/05/19 05/23/20 History cranberry extract 425 mg PO DAILY 04/05/19 05/23/20 History meclizine 25 mg PO HS 05/23/20 05/23/20 History rosuvastatin 20 mg PO HS 05/23/20 05/23/20 History Allergies Allergy/AdvReac Type Severity Reaction Status Date / Time niacin Allergy Severe Hives / Verified 05/23/20 08:36 Red Face fluoxetine Allergy Mild Hives Verified 05/23/20 08:36 Sulfa (Sulfonamide Allergy Unknown LIP Verified 05/23/20 08:36 Antibiotics) SWELLING Exam Narrative: Exam Narrative: On exam the patient is noted be a well-developed well-nourished female no acute distress. She is alert and oriented x3. Normal mood and affect. Hearing and vision intact. Respiratory is good no distress. Pulse regular rate rhythm. Abdomen benign. Extremities showed the patient's right knee to be painful with manipulation and range of motion. She has tenderness on the medial joint line with subpatellar crepitation mild effusion and swe
[2020-06-15 08:38] VITALS: BMI 38.5
--- NOTE | 2020-06-22 12:24 | PM.IMHP ---
H&P: HPI History of Present Illness Date/Time: 06/22/20 12:24 the patient is a 79-year-old female who presents with right knee pain. This is chronic in nature. The patient has trouble standing or walking for long periods. This is due to degenerative changes. Pain is worse with activities somewhat relieved by rest. The patient has trouble with twisting squatting kneeling going up and down stairs and cannot stand or walk for long periods. Patient reports mechanical symptoms a Mateo crepitation with occasional swelling. Despite cortisone therapy and anti-inflammatories symptoms continue. X-rays this time do show advanced primary osteoarthritis in the right knee joint. The patient would now like to proceed with right total knee arthroplasty after having discussed risks benefits limitations and alternatives to surgery in great detail with Dr. Fajardo. Chief Complaint: Right knee pain due to advanced primary osteoarthritis. Review of Systems Review of Systems: All systems reviewed & are unremarkable except as noted in HPI and below PMFSH Past Medical History Medical History Anxiety Arthritis Bronchospasm with bronchitis, acute Chronic kidney disease Depression Diabetes mellitus Diverticulitis HLD (hyperlipidemia) HTN (hypertension) Hypothyroidism Hypoxemia Infected sebaceous cyst of skin MRSA (methicillin resistant staph aureus) culture positive Obstructive sleep apnea Surgical History Surgical History H/O thyroidectomy H/O toe surgery Family History Family History Father Cerebrovascular accident Family history of malignant neoplasm Patient's father is Mother Family history of coronary artery disease Family history of malignant neoplasm Patient's mother is Sibling Patient's sister is in good health Family history of malignant neoplasm Patient's brother is Social History Social History Smoking status: Never smoker Second hand tobacco smoke exposure: No Alcohol intake: never Substance use: never Substance use type: does not use Living arrangements: alone Additional living arrangements comments: DAUGHTER (HELENA) LIVES IN [facility] Gender identity (if verbalized by the patient): Female Spiritual care concerns: No Agree to blood products: Yes Meds Home Medications and Allergies Home Medications Medication Instructions Recorded Confirmed Type carvedilol 3.125 mg PO BID 02/19/19 06/15/20 History gemfibrozil 600 mg PO BID 02/19/19 06/15/20 History cjjnbshd-caql-oihnlw-hyalur ac 3 cap PO DAILY 02/19/19 06/15/20 History levothyroxine 75 mcg PO HS 02/19/19 06/15/20 History lisinopril 10 mg PO DAILY 02/19/19 06/15/20 History metformin 500 mg PO BID 02/19/19 06/15/20 History paroxetine HCl 20 mg PO HS 02/19/19 06/15/20 History acetaminophen 650 mg PO Q4H PRN 04/05/19 06/15/20 History cranberry extract 425 mg PO DAILY 04/05/19 06/15/20 History meclizine 25 mg PO HS 05/23/20 06/15/20 History rosuvastatin 20 mg PO HS 05/23/20 06/15/20 History Allergies Allergy/AdvReac Type Severity Reaction Status Date / Time niacin Allergy Severe Hives / Verified 06/15/20 08:35 Red Face fluoxetine Allergy Mild Hives Verified 06/15/20 08:35 Sulfa (Sulfonamide Allergy Unknown LIP Verified 06/15/20 08:35 Antibiotics) SWELLING Exam Narrative: Exam Narrative: The patient is noted be a well-developed well-nourished female no acute distress she is alert oriented x3. Normal mood and affect. HEENT exam within normal limits. Hearing and vision are intact. Respiratory is good no distress. Pulse regular rate rhythm. Abdomen benign. Extremities showed the patient's right knee to be painful with manipulation range of motion.
--- NOTE | 2020-06-26 13:18 | WPDANESEPPF ---
Anes - Initial Pre Proc Eval Procedure: Operation Date: 06/27/20 07:30 Proposed Procedures p Right Total Knee Arthroplasty - Kevin Fajardo MD Date/Time: 06/26/20 13:18 Surgeon: Kevin Fajardo MD Pre Op Diagnosis: Right Knee OA Patient Data Age: 79 Gender: F Height: 1.57 m Weight: 95.5 kg Last Vital Signs Temp 36.7 C 05/23/20 07:56 Pulse 88 05/23/20 07:56 Resp 20 05/23/20 07:56 BP 144/74 H 05/23/20 07:56 Pulse Ox 94 05/23/20 07:56 Allergies Allergy/AdvReac Type Severity Reaction Status Date / Time niacin Allergy Severe Hives / Verified 06/15/20 08:35 Red Face fluoxetine Allergy Mild Hives Verified 06/15/20 08:35 Sulfa (Sulfonamide Allergy Unknown LIP Verified 06/15/20 08:35 Antibiotics) SWELLING Home Medications Medication Instructions Recorded Confirmed Type carvedilol 3.125 mg PO BID 02/19/19 06/15/20 History gemfibrozil 600 mg PO BID 02/19/19 06/15/20 History znhrrepn-cpce-wwdrku-hyalur ac 3 cap PO DAILY 02/19/19 06/15/20 History levothyroxine 75 mcg PO HS 02/19/19 06/15/20 History lisinopril 10 mg PO DAILY 02/19/19 06/15/20 History metformin 500 mg PO BID 02/19/19 06/15/20 History paroxetine HCl 20 mg PO HS 02/19/19 06/15/20 History acetaminophen 650 mg PO Q4H PRN 04/05/19 06/15/20 History cranberry extract 425 mg PO DAILY 04/05/19 06/15/20 History meclizine 25 mg PO HS 05/23/20 06/15/20 History rosuvastatin 20 mg PO HS 05/23/20 06/15/20 History ECG: Date of Service: 05/23/20 Procedure(s): CA 12 lead EKG Accession Number(s): [id number] cc: ~ Measurements Intervals [place] Rate: 86 P: -28 KS: 160 QRS: 70 QRSD: 72 T: 58 QT: 339 QTc: 407 Interpretive Statements SINUS RHYTHM ATRIAL PREMATURE COMPLEX BASELINE ARTIFACT- I, II, III, AVR, AVL, AVF, V1-V6 BORDERLINE ECG Electronically Signed On 05-23-2020 10:56:07 CDT by Hung To D.O. Dictated By: Hung To DO 05/23/20 1056 Patient hx anesthesia problems: none Family hx anesthesia problems: none PMFSH Past Medical History Medical History (Updated 06/26/20 @ 13:19 by Cooper Sapp MD) Anxiety Arthritis Bronchospasm with bronchitis, acute Chronic kidney disease Depression Diabetes mellitus Diverticulitis HLD (hyperlipidemia) HTN (hypertension) Hypothyroidism Hypoxemia Infected sebaceous cyst of skin MRSA (methicillin resistant staph aureus) culture positive Obesity Obstructive sleep apnea Surgical History Surgical History H/O thyroidectomy H/O toe surgery Family History Family History Father Cerebrovascular accident Family history of malignant neoplasm Patient's father is Mother Family history of coronary artery disease Family history of malignant neoplasm Patient's mother is Sibling Patient's sister is in good health Family history of malignant neoplasm Patient's brother is Social History Social History Smoking status: Never smoker Second hand tobacco smoke exposure: No Alcohol intake: never Substance use: never Substance use type: does not use Living arrangements: alone Additional living arrangements comments: DAUGHTER (HELENA) LIVES IN [facility] Gender identity (if verbalized by the patient): Female Spiritual care concerns: No Agree to blood products: Yes Anes - Eval Final PreProcedure Day of Procedure 06/26/20 13:18 Patient weight: obese Heart: regular rate and rhythm Lungs: clear to auscultation and normal air move
--- NOTE | 2020-06-26 13:20 | WPDANESPNB ---
Anes - Peripheral Nerve Block Date/Time: 06/26/20 13:20 I have discussed with the patient/family/POA the placement of a peripheral nerve block for post-operative pain management, including associated risks, benefits, complications, and side effects. Alternative methods of post-operative analgesia were detailed. Questions were solicited and answers provided to the satisfaction of the patient/family/POA. Time-Out: A pre-procedural Time-Out was completed immediately before starting the procedure and confirmed: Patient Identification, Site, Procedure, Patient Position and the Availability of Requisite Equipment. Clinical Indications: Acute post-operative pain management requested by the operative surgeon. Nerve Block Insertion Note Anes-nerve block: adductor canal right Patient position: supine Skin prep: chlorhexidine Needle: 22 gauge, stimulating, insulated echogenic needle. Needle length: 80 mm Technique: ultrasound Technique comment: in plane Injectate: bupivacaine 0.5% with epi 5 mcg/ml (30cc) Observations: tolerated well Complications: none Procedure start time:: 720 Procedure end time:: 725
[2020-06-27] VITALS (16 sets, daily range): BP systolic 117–172; BP diastolic 51–80; PULSE 85–111; RESP 14–18; TEMP 35.8–37.3; O2SAT 92–97; BMI 38.5
--- NOTE | ~2020-06-27 | XR_ITS ---
EXAMINATION: XR knee RT 2V DATE: 06/27/2020 09:36 INDICATION: Total right knee arthroplasty. Postop. TECHNIQUE: 2 views of right knee were obtained. COMPARISON: Right knee radiographs 02/06/2020 FINDINGS: There is a total right knee arthroplasty with patellar resurfacing in near-anatomic alignme nt. No fracture. There is gas in the knee joint and soft tissues, consistent with recent surgery. The re is a small knee joint effusion. Anterior skin vincent are noted. IMPRESSION: 1. Total right knee arthroplasty in near-anatomic alignment. Reviewed, dictated and finalized at location B.
[2020-06-27] MEDS: LACTATED RINGERS 1,000 ML 30 ML IV CONT ×2 (06:56→09:27)
[2020-06-27] MEDS: TRANEXAMIC ACID 1,000MG/ISO100 1,000 MG/100 ML BAG 200 MG IVPB (06:57)
[2020-06-27] MEDS: ACETAMINOPHEN 500 MG TABLET 1000 MG PO (06:59)
--- NOTE | 2020-06-27 07:10 | WPDHPUPDATE1 ---
History and Physical Update Update Date/Time: 06/27/20 07:10 History and Physical has been reviewed, including an updated exam of the patient. There are NO changes in the patient's condition. Risks, benefits, and alternatives have been discussed and questions answered. Patient agrees to proceed with procedure.
[2020-06-27 07:12] LABS: Glucose Point of Care 135 (65-105)
[2020-06-27] MEDS: ceFAZolin 2 GM/D5W 50 ML 2 GM/50 ML BAG IVPB (07:33)
--- NOTE | 2020-06-27 08:54 | PM.PROC ---
Procedure Note - Detailed Date of procedure: 06/27/20 Pre-op diagnosis: Right Knee OA Procedure performed: [Right] total knee arthroplasty Description of procedure: The patient was brought to the operating room. General anesthetic was administered. Placed on the operating table and sterilely prepped and draped in usual manner. A longitudinal incision was made. Tourniquet inflated to 300 mmHg for a total of [time] minutes. Dissection carried down to the fascia. Medial parapatellar incision was made and the patella subluxated laterally. Patella cut from [22] to [14] mm and sized for a [34] mm button. The tibia cut perpendicular to the long axis and femur cut in 7 degrees of valgus, a [62.5] femur trialed. [67] tibia was felt to fit the best. The soft tissue balanced, hemostasis obtained. All [address], [67] tibia, [62.5] femur, [34] mm patella, and [12] mm poly. Motion was 0-125 degrees with good stablility and flexion and extension. The wound was closed with #2 vicryl, 2-0 Vicryl and vincent. Anesthesia: GETA Surgeon: Kevin Fajardo MD Supervisor [employer] Maintenance: Narendra Cabrera Estimated blood loss (mL): 200 Drains: No Packing: No Pathology: none sent Complications: No immediate complications Condition: stable Disposition: PACU Findings: arthritis
[2020-06-27 09:44] LABS: Glucose Point of Care 194 (65-105)
[2020-06-27] MEDS: SODIUM CHLORIDE 0.9% IV 1,000 ML 125 ML IV CONT (11:11)
[2020-06-27] MEDS: HYDROcodone/acetaminophen (*CRX) 7.5-325 MG TABLET 1 TAB PO ×2 (11:52→22:11)
--- NOTE | 2020-06-27 15:09 | PM.IMCN ---
Assessment and Plan Assessment and plan (1) Obesity: Code(s): E66.9 - Obesity, unspecified Status: Acute (2) Obstructive sleep apnea: Code(s): G47.33 - Obstructive sleep apnea (adult) (pediatric) Status: Acute (3) Hypothyroidism: Code(s): E03.9 - Hypothyroidism, unspecified Status: Acute (4) HTN (hypertension): Code(s): I10 - Essential (primary) hypertension Status: Acute (5) Diabetes mellitus: Code(s): E11.9 - Type 2 diabetes mellitus without complications Status: Acute (6) HLD (hyperlipidemia): Code(s): E78.5 - Hyperlipidemia, unspecified Status: Acute (7) Status post knee replacement: Code(s): Z96.659 - Presence of unspecified artificial knee joint Status: Acute Additional Plan # Status post right knee replacment pOD 0 # Diabetes mellitus: on meofmirn at home. will start ssi insulin. # HTN: home meds # hypothyroidsm: home meds # hyperlipidemia: home meds # Chronic kidney disease stage III: monitor. check labs in am. # anxiiety/Depression # Obstructive sleep apnea # DVT roph: on rivaroxaban per protocol Thank you for the consult. we will follow along. HPI Data of Consult Consult date: 06/27/20 Requesting Physician: Kevin Fajardo MD Primary Care Provider: Edward Wall MD Consult Narrative Narrative: Dayanara Bucio is a 79 year old female who presents for right knee repalcement which was done this am. she is seen post operatively. she already worked with therapy this am. she denies any sob, cehst pain, abdominal pain, nauea, vomtign. she has multiople diffrent medical problems for which hospitalist team was consulted for continued managment postoeratively. Review of Systems Review of Systems: Narrative: - CONSTITUTIONAL: Denies weight loss, fever and chills. - HEENT: Denies changes in vision and hearing - RESPIRATORY: Denies SOB and cough. - CV: Denies palpitations and CP. - GI: Denies abdominal pain, nausea, vomiting and diarrhea. - : Denies dysuria and urinary frequency. - MSK: Denies myalgia and joint pain.except for right knee pains - SKIN: Denies rash and pruritus. - NEUROLOGICAL: Denies headache and syncope. - PSYCHIATRIC: Denies recent changes in mood. Denies anxiety and depression. All systems reviewed & are unremarkable except as noted in HPI and below PMFSH Past Medical History Medical History (Updated 06/27/20 @ 15:26 by Simone Omer MD) Anxiety Arthritis Bronchospasm with bronchitis, acute Chronic kidney disease Depression Diabetes mellitus Diverticulitis HLD (hyperlipidemia) HTN (hypertension) Hypothyroidism Hypoxemia Infected sebaceous cyst of skin MRSA (methicillin resistant staph aureus) culture positive Obesity Obstructive sleep apnea Surgical History Surgical History (Updated 06/27/20 @ 15:26 by Simone Omer MD) H/O thyroidectomy H/O toe surgery Family History Family History Father Cerebrovascular accident Family history of malignant neoplasm Patient's father is Mother Family history of coronary artery disease Family history of malignant neoplasm Patient's mother is Sibling Patient's sister is in good health Family history of malignant neoplasm Patient's brother is Social History Social History Smoking status: Never smoker Second hand tobacco smoke exposure: No Alcohol intake: never Substance use: never Substance use type: does not use Living arrangements: alone Additional living arrangements comments: DAUGHTER (HELENA) [facility]IV[facility] IN [facility] Gender identity (if verbalized by the patient): Female Sexual Orientation (if Verbalized by the Patient): Straight or Heterosexual Spiritual care concerns: No Agree to blood products: Yes Meds H
[2020-06-27 16:49] LABS: Glucose Point of Care 160 (65-105)
[2020-06-27] MEDS: RIVAROXABAN 10 MG TABLET PO (17:33)
[2020-06-27] MEDS: metFORMIN HCL 500 MG TABLET PO (17:33)
[2020-06-27] MEDS: gemfibroziL 600 MG TABLET PO (17:33)
[2020-06-27] MEDS: CELECOXIB 200 MG CAPSULE PO (17:33)
[2020-06-27] MEDS: oxyCODONE/ACETAMINOPHEN (*CRX) 5-325 MG TABLET 1 TABLET PO (17:40)
[2020-06-27] MEDS: DOCUSATE SODIUM 100 MG CAPSULE PO (20:53)
[2020-06-27] MEDS: FAMOTIDINE 20 MG TABLET PO (20:53)
[2020-06-27] MEDS: carvediloL 3.125 MG TABLET PO (20:53)
[2020-06-27] MEDS: PARoxetine 20 MG TABLET PO (20:54)
[2020-06-27 22:06] LABS: Glucose Point of Care 93 (65-105)
[2020-06-28 02:44] VITALS: BP 135/66; PULSE 55; RESP 18; TEMP 36.7; O2SAT 99
[2020-06-28 04:15] VITALS: BP 135/66; PULSE 55; RESP 18; TEMP 36.7; O2SAT 99
[2020-06-28] MEDS: HYDROcodone/acetaminophen (*CRX) 7.5-325 MG TABLET 1 TAB PO ×2 (04:32→12:51)
[2020-06-28 06:11] LABS: Basophils Absolute Auto 0.1 K/mm3 (0.0-0.1); Basophils Percent Auto 0.6 % (0.2-1.2); Hematocrit 38.6 % (37.0-47.0); Hemoglobin 11.8 g/dL (12.0-15.0); Immature Granulocyte Absolute 0.04 K/mm3 (0.00-0.031); Immature Granulocyte Percent A 0.3 % (0-0.5); Lymphocytes Absolute Auto 2.08 K/mm3 (0.9-3.2); Lymphocytes Percent Auto 18.1 % (18.3-44.2); Mean Corpuscular HGB Conc 30.6 g/dl (32-36); Mean Corpuscular Hemoglobin 29.9 pg (26-34); Mean Platelet Volume 11.6 fl (7.4-10.4); Monocytes Absolute Auto 1.6 K/mm3 (0.1-0.6); Neutrophils Absolute Auto 7.7 K/mm3 (1.3-6.7); Platelet Count Result 208 k/mm3 (150-375); Red Blood Count 3.94 M/mm3 (4.2-5.4); Red Cell Distribution Width 14.2 % (11.5-14.5); White Blood Count 11.5 K/mm3 (4.5-10.0)
[2020-06-28] MEDS: gemfibroziL 600 MG TABLET PO (06:35)
[2020-06-28] MEDS: LEVOTHYROXINE SODIUM 75 MCG TABLET PO (06:35)
[2020-06-28 07:26] LABS: Anion Gap 5 mmol/L (8-16); Blood Urea Nitrogen 20 mg/dL (7-17); Calcium 8.5 mg/dL (8.4-10.2); Carbon Dioxide 24 mmol/L (22-30); Chloride 109 mmol/L (98-107); Estimated CRCL calculation 50 ml/min; Estimated Glomerular Filt Rate > 60; Glucose 109 mg/dL (65-105); Potassium 4.1 mmol/L (3.4-5.0); Sodium 138 mmol/L (137-145)
[2020-06-28 07:28] LABS: Glucose Point of Care 103 (65-105)
[2020-06-28] MEDS: CELECOXIB 200 MG CAPSULE PO (07:49)
[2020-06-28] MEDS: oxyCODONE/ACETAMINOPHEN (*CRX) 5-325 MG TABLET 1 TABLET PO (07:50)
[2020-06-28] MEDS: metFORMIN HCL 500 MG TABLET PO (07:50)
--- NOTE | 2020-06-28 08:03 | WPDANESPN ---
Anes - Prog Note Post-Op Date/Time: 06/28/20 08:03 Cardiovascular status: normal Respiratory status: normal Airway patency: baseline Mental status: baseline Post-Op hydration status: normal Vital Signs: Last Vital Signs Temp 98.1 F 06/28/20 04:15 Pulse 55 L 06/28/20 04:15 Resp 18 06/28/20 04:15 BP 135/66 06/28/20 04:15 Pulse Ox 99 06/28/20 04:15 Pain Score (VAS): 03/18 I/O: Intake & Output 06/27/20 06/28/20 06/28/20 23:59 07:59 15:59 Intake Total 1290 1350 Output Total 450 2600 Balance 840 -1250 Laboratory Tests 06/28/20 05:19 06/28/20 07:09 06/27/20 06/27/20 06/27/20 07:02 09:30 16:44 WBC RBC Hgb Hct MCV MCH MCHC RDW Plt Count MPV Immature Gran % (Auto) Neut % (Auto) Lymph % (Auto) [place] % (Auto) Eos % (Auto) Baso % (Auto) Lymph # (Auto) [place] # (Auto) Eos # (Auto) Baso # (Auto) Abs Immat Gran (auto) Absolute Neuts (auto) Absolute Nucleated RBC Nucleated RBC % Sodium Potassium Chloride Carbon Dioxide Anion Gap BUN Creatinine Estim Creat Clear Calc Estimated GFR Glucose POC Capillary Glucose 194 H 160 H Calcium Blood Type O Positive Antibody Screen Negative 06/27/20 06/28/20 06/28/20 22:02 05:19 07:09 WBC 11.5 H RBC 3.94 L Hgb 11.8 L Hct 38.6 MCV 98.0 MCH 29.9 MCHC 30.6 L RDW 14.2 Plt Count 208 MPV 11.6 H Immature Gran % (Auto) 0.3 Neut % (Auto) 67.0 Lymph % (Auto) 18.1 L [place] % (Auto) 14.0 H Eos % (Auto) 0.0 Baso % (Auto) 0.6 Lymph # (Auto) 2.08 [place] # (Auto) 1.6 H Eos # (Auto) 0.0 Baso # (Auto) 0.1 Abs Immat Gran (auto) 0.04 H Absolute Neuts (auto) 7.7 H Absolute Nucleated RBC 0.0 Nucleated RBC % 0.0 Sodium 138 Potassium 4.1 Chloride 109 H Carbon Dioxide 24 Anion Gap 5 L BUN 20 H Creatinine 0.90 Estim Creat Clear Calc 50 Estimated GFR > 60 Glucose 109 H POC Capillary Glucose 93 Calcium 8.5 Blood Type Antibody Screen 06/28/20 07:20 WBC RBC Hgb Hct MCV MCH MCHC RDW Plt Count MPV Immature Gran % (Auto) Neut % (Auto) Lymph % (Auto) [place] % (Auto) Eos % (Auto) Baso % (Auto) Lymph # (Auto) [place] # (Auto) Eos # (Auto) Baso # (Auto) Abs Immat Gran (auto) Absolute Neuts (auto) Absolute Nucleated RBC Nucleated RBC % Sodium Potassium Chloride Carbon Dioxide Anion Gap BUN Creatinine Estim Creat Clear Calc Estimated GFR Glucose POC Capillary Glucose 103 Calcium Blood Type Antibody Screen Post-procedural complaints: none Patient Feedback: Patient satisfied with anesthetic care.
[2020-06-28 08:15] VITALS: BP 151/65; PULSE 89; RESP 16; TEMP 36.2; O2SAT 96
[2020-06-28] MEDS: FAMOTIDINE 20 MG TABLET PO (09:39)
[2020-06-28 09:40] VITALS: PULSE 89
[2020-06-28] MEDS: lisinopriL 10 MG TABLET PO (09:40)
[2020-06-28] MEDS: DOCUSATE SODIUM 100 MG CAPSULE PO (09:40)
[2020-06-28] MEDS: carvediloL 3.125 MG TABLET PO (09:40)
--- NOTE | 2020-06-28 10:18 | PM.IMPN ---
Progress Note: A&P Assessment and Plan (1) Status post knee replacement: Code(s): Z96.659 - Presence of unspecified artificial knee joint Status: Acute (2) HLD (hyperlipidemia): Code(s): E78.5 - Hyperlipidemia, unspecified Status: Acute (3) Obesity: Code(s): E66.9 - Obesity, unspecified Status: Acute (4) Obstructive sleep apnea: Code(s): G47.33 - Obstructive sleep apnea (adult) (pediatric) Status: Acute (5) Hypothyroidism: Code(s): E03.9 - Hypothyroidism, unspecified Status: Acute (6) HTN (hypertension): Code(s): I10 - Essential (primary) hypertension Status: Acute (7) Diabetes mellitus: Code(s): E11.9 - Type 2 diabetes mellitus without complications Status: Acute Additional Plan # Status post right knee replacment pOD 0 # Diabetes mellitus: on meofmirn at home. SSi. continue same. blood sguar at goal. # HTN: home meds. reasonable. some of the high bp reading likely from pain. # hypothyroidsm: home meds # hyperlipidemia: home meds # Chronic kidney disease stage III: monitor. labs stable. # anxiiety/Depression # Obstructive sleep apnea # DVT roph: on rivaroxaban per protocol mild leukocytosis today, likely reactive. no signs and symptoms of infection. cotninue with therapy. plans for discahge per primary. Thank you for the consult. we will follow along. Subjective Date/time seen: 06/28/20 10:18 no overnight events, she feels a little sore in her knee. she is going to work with therapy this am, no fever, chills, sob, chest pain, abodminal pain, nausea, vomiting. Review of Systems Review of Systems: Narrative: - CONSTITUTIONAL: Denies weight loss, fever and chills. - HEENT: Denies changes in vision and hearing - RESPIRATORY: Denies SOB and cough. - CV: Denies palpitations and CP. - GI: Denies abdominal pain, nausea, vomiting and diarrhea. - : Denies dysuria and urinary frequency. - MSK: Denies myalgia and joint pain. - SKIN: Denies rash and pruritus. - NEUROLOGICAL: Denies headache and syncope. - PSYCHIATRIC: Denies recent changes in mood. Denies anxiety and depression. All systems reviewed & are unremarkable except as noted in HPI and below Exam Narrative: Exam Narrative: GENERAL: The patient is well developed, not in acute distress HEENT: Nonicteric sclerae, PERRLA, EOMI. Oropharynx clear. Moist mucous membranes. Conjunctivae appear well perfused. CHEST: Chest wall is nontender. HEART: Regular rate and rhythm without murmur, rubs, or gallops LUNGS: Clear to auscultation bilaterally. no respiratory distress ABDOMEN: Soft, positive bowel sounds, non-tender, no organomegaly. SKIN: No rash, no excessive bruising, petechiae, or purpura. NEUROLOGIC: Cranial nerves II-XII intact, alert and oriented x 3, no gross motor deficits EXTREMITIES: no edema, cyanosis or clubbing right knee with vincent vsiible, dressing in place Objective Data Vital Signs Vital Signs: Vital Signs - 24 hr 06/27/20 10:25 06/27/20 10:40 06/27/20 11:00 Temperature 96.4 F L Pulse Rate 92 92 93 Respiratory Rate 14 14 18 Blood Pressure 119/58 L 119/56 L 149/64 H Pulse Oximetry 92 93 95 06/27/20 11:15 06/27/20 11:45 06/27/20 12:45 Temperature 96.4 F L 96.4 F L 97.3 F L Pulse Rate 98 96 101 H Respiratory Rate 18 18 18 Blood Pressure 151/75 H 172/60 H 145/64 H Pulse Oximetry 95 94 96 06/27/20 14:44 06/27/20 18:00 06/27/20 19:35 Temperature 97.7 F 97.7 F 98.8 F Pulse Rate 102 H 111 H 95 Respiratory Rate 18 18 18 Blood Pressure 149/62 H 132/72 117/62 Pulse Oximetry 93 95 94 06/27/20 20:53 06/27/20 23:15 06/28/20 02:44 Temperature 97.4 F L 98.1 F Pulse Rate 90 90 55 L Respiratory Rate 18 18 Blood Pressure 134/54 L 135/66 Pulse Oximetry 96 99 06/28/20 04:15 06/28/20 08:15 06/28/20 09:40 Temperature 98.1 F 97.1 F L Pulse Rate 55 L 89 89 Respiratory Rate 18 16 Blood Pressure 135/66 151/65 H Pulse Oxim
[2020-06-28 11:30] LABS: Glucose Point of Care 100 (65-105)
--- NOTE | 2020-06-28 11:49 | PM.PNORT ---
Progress Note: A&P Additional Plan Patient will be discharged home today will follow up as an outpatient. She will have outpatient physical therapy for total knee protocol. See discharge orders. The patient voiced understanding and agrees with above plan. Time Spent With Patient Time with patient: less than 15 minutes Subjective Subjective Date/Time Seen: 06/28/20 11:49 Patient is status post right total knee arthroplasty for severe primary osteoarthritis right knee joint. Postop day 1. Patient is doing well no complaints. She is ready for discharge to home tolerated physical therapy well pain is well controlled. Review of Systems Review of Systems: All systems reviewed & are unremarkable except as noted in HPI and below Exam Narrative: Exam Narrative: Vital signs stable, afebrile, neurovascular the patient is intact. Wound is clean and dry. Calves are benign. Tolerating physical therapy well ambulating independently with a walker weight-bearing as tolerated. Objective Data Vital Signs Vital Signs: Vital Signs - 24 hr 06/27/20 12:45 06/27/20 14:44 06/27/20 18:00 Temperature 36.3 C L 36.5 C 36.5 C Pulse Rate 101 H 102 H 111 H Respiratory Rate 18 18 18 Blood Pressure 145/64 H 149/62 H 132/72 Pulse Oximetry 96 93 95 06/27/20 19:35 06/27/20 20:53 06/27/20 23:15 Temperature 37.1 C 36.3 C L Pulse Rate 95 90 90 Respiratory Rate 18 18 Blood Pressure 117/62 134/54 L Pulse Oximetry 94 96 06/28/20 02:44 06/28/20 04:15 06/28/20 08:15 Temperature 36.7 C 36.7 C 36.2 C L Pulse Rate 55 L 55 L 89 Respiratory Rate 18 18 16 Blood Pressure 135/66 135/66 151/65 H Pulse Oximetry 99 99 96 06/28/20 09:40 Temperature Pulse Rate 89 Respiratory Rate Blood Pressure Pulse Oximetry Intake/Output Intake/Output: Intake & Output 06/25/20 06/26/20 06/27/20 06/28/20 23:59 23:59 23:59 23:59 Intake Total 2260 1640 Output Total 450 2600 Balance 1810 -960 Meds/Results Medications: Active Medications Generic Name Dose Route Start Last Admin Trade Name Freq PRN Reason Stop Dose Admin Hydrocodone Bitart/Acetaminophen 1 tab 06/27/20 08:59 06/28/20 04:32 Hydrocodone/Acetaminophen (*Crx) 7.5-325 Mg Tablet PO 1 tab Q6H PRN Administration Pain Rated 7-10 Carvedilol 3.125 mg 06/27/20 21:00 06/28/20 09:40 Carvedilol 3.125 Mg Tablet PO 3.125 mg Q12HR DIONI Administration Celecoxib 200 mg 06/27/20 17:00 06/28/20 07:49 Celecoxib 200 Mg Capsule PO 200 mg BIDWM DIONI Administration Cyclobenzaprine HCl 10 mg 06/27/20 08:59 Cyclobenzaprine Hcl 10 Mg Tablet PO Q8H PRN Spasms Dextrose 12.5 gm 06/27/20 15:23 Dextrose 50% 25 Gm/50 Ml Syringe IV PUSH PRN PRN Hypoglycemia Protocol Diphenhydramine HCl 25 mg 06/27/20 08:59 Diphenhydramine Hcl Inj 50 Mg/Ml Vial IV PUSH Q6H PRN Itching Docusate Sodium 100 mg 06/27/20 21:00 06/28/20 09:40 Docusate Sodium 100 Mg Capsule PO 100 mg Q12HR DIONI Administration Famotidine 20 mg 06/27/20 21:00 06/28/20 09:39 Famotidine 20 Mg Tablet PO 20 mg Q12HR DIONI Administration Gemfibrozil 600 mg 06/27/20 16:30 06/28/20 06:35 Gemfibrozil 600 Mg Tablet PO 600 mg BIDAC DIONI Administration Glucagon 1 mg 06/27/20 15:23 Glucagon For Inj 1 Mg Vial IM PRN PRN Hypoglycemia Protocol Glucose 15 gm 06/27/20 15:23 Glucose Oral Gel 15 Gm Of Glucse In 37.5 Gm Tube PO PRN PRN Hypoglycemia Protocol Dextrose 1,000 mls @ 100 mls/hr 06/27/20 15:23 Dextrose 5% 1,000 Ml IVPB PRN PRN Hypoglycemia Protocol Insulin Aspart 2 - 5 units 06/27/20 17:00 06/28/20 11:17 Insulin Aspart (*Bkc) 100 Units/Ml SUB-Q Not Given TIDWM DIONI Protocol Levothyroxine Sodium 75 mcg 06/28/20 06:30 06/28/20 06:35 Levothyroxine Sodium 75 Mcg Tablet PO 75 mcg DAILY@0630 DIONI Administration Lisinopril 10 mg 06/28/20 09:0
--- NOTE | 2020-06-28 12:02 | PM.DS ---
DS: Admitting Diagnosis Admitting Diagnosis Admitting Diagnosis: Severe primary osteoarthritis right knee joint. Discharge diagnosis severe primary osteoarthritis right knee joint status post right total knee arthroplasty. DS: Summary Hospital Course Hospital Course: The patient underwent right total knee arthroplasty on June 27, 2020 postop day 1 she was doing well no postoperative complaints were noted, pain is well controlled. Vital signs are stable she is afebrile and neurovascularly she is intact wound is clean and dry labs are stable. Patient tolerated physical therapy well was deemed stable for discharge home postop day 1 Time Spent with Patient Time attestation: Total time spent providing and/or coordinating discharge services: Exam Narrative: Exam Narrative: Well-developed well-nourished female no acute distress status post right total knee arthroplasty postop day 1. Vital signs are stable afebrile neurovascular the patient is intact wound is clean and dry calves are benign. Ambulating independently pain is well controlled mild swelling right knee postop day 1. DS: Data Data Completed and Pending Labs on day of discharge: Labs from last 24 hours 06/28/20 06/28/20 06/28/20 11:16 07:20 07:09 WBC RBC Hgb Hct MCV MCH MCHC RDW Plt Count MPV Immature Gran % (Auto) Neut % (Auto) Lymph % (Auto) [place] % (Auto) Eos % (Auto) Baso % (Auto) Lymph # (Auto) [place] # (Auto) Eos # (Auto) Baso # (Auto) Abs Immat Gran (auto) Absolute Neuts (auto) Absolute Nucleated RBC Nucleated RBC % Sodium 138 Potassium 4.1 Chloride 109 H Carbon Dioxide 24 Anion Gap 5 L BUN 20 H Creatinine 0.90 Estim Creat Clear Calc 50 Estimated GFR > 60 Glucose 109 H POC Capillary Glucose 100 103 Calcium 8.5 06/28/20 06/27/20 06/27/20 05:19 22:02 16:44 WBC 11.5 H RBC 3.94 L Hgb 11.8 L Hct 38.6 MCV 98.0 MCH 29.9 MCHC 30.6 L RDW 14.2 Plt Count 208 MPV 11.6 H Immature Gran % (Auto) 0.3 Neut % (Auto) 67.0 Lymph % (Auto) 18.1 L [place] % (Auto) 14.0 H Eos % (Auto) 0.0 Baso % (Auto) 0.6 Lymph # (Auto) 2.08 [place] # (Auto) 1.6 H Eos # (Auto) 0.0 Baso # (Auto) 0.1 Abs Immat Gran (auto) 0.04 H Absolute Neuts (auto) 7.7 H Absolute Nucleated RBC 0.0 Nucleated RBC % 0.0 Sodium Potassium Chloride Carbon Dioxide Anion Gap BUN Creatinine Estim Creat Clear Calc Estimated GFR Glucose POC Capillary Glucose 93 160 H Calcium Discharge Plan Discharge Patient Disposition: Home, Self-Care Discharge Instructions: Patient is discharged home general diet activity as tolerated with a walker weight-bearing as tolerated right lower extremity. Outpatient physical therapy at our office for total knee protocol to begin early next week. The patient is to do home physical therapy exercises every day as well for total knee protocol. Change dressing daily keep clean and dry water evidence of drainage or infection. Patient is discharged with Xarelto 10 mg daily for a total postop course of 2 weeks when this is complete, switch to aspirin 325 mg b.i.d. x1 month. Also discharged with [place] 7 5 mg 1 tablet every 4 hours p.r.n. pain. The patient will follow up at 2 weeks postop for staple removal and wound recheck the patient is asked to call the office immediately at [phone] for any problems difficulties or questions. Patient Instructions: Rivaroxaban (By mouth) Stand Alone Forms: Avoid NSAIDs, General Discharge Instructions Follow-up/Referrals: Kevin Fajardo MD [Physician] - Discharge Medications: New hydrocodone-acetaminophen 7.5-325 mg Tablet 1 tablet PO Q4H PRN (Reason: Pain Rated 7-10) Qty: 50 RF: 0 Xarelto 10 mg Tablet 10 mg PO DAILY@17 Qty: 13 RF: 0 Continued metformin 500 mg tablet 500 mg
--- NOTE | 2020-06-28 13:38 | PC.NURSE ---
On 06/28/20, the student, [Severo Tran ], provided care and completed [facility] hospital documentation on this patient. I have reviewed the student's documentation and agree with the findings.
[2020-06-28 14:04] VITALS: BP 164/68; PULSE 88; RESP 18; TEMP 36.3; O2SAT 96
== END 2020-06-28 14:12 | disposition home or self-care (01) ==
LOC: ANHSURGERY 06:14 → ANH2MED 11:01
PROVIDERS: PCP Family Medicine Adolescent Medicine; Visit Provider Orthopaedic Surgery
PROC: (CPT 27447; principal; 2020-06-27 07:30)
DX: M17.11 Unilateral primary osteoarthritis, right knee (principal); F41.8 Other specified anxiety disorders; E11.9 Type 2 diabetes mellitus without complications; Z87.19 Personal history of other diseases of the digestive system; E78.5 Hyperlipidemia, unspecified; E89.0 Postprocedural hypothyroidism; G47.33 Obstructive sleep apnea (adult) (pediatric); Z86.14 Personal history of Methicillin resistant Staphylococcus aureus infection; Z79.84 Long term (current) use of oral hypoglycemic drugs; I49.1 Atrial premature depolarization; E66.9 Obesity, unspecified; Z68.38 Body mass index [BMI] 38.0-38.9, adult; G89.18 Other acute postprocedural pain; I10 Essential (primary) hypertension
CPT/HCPCS: 64447; 27447; 36415; 73560; 80048; 82948; 85025; 86850; 86900; 86901; 97110; 97116; 97161; 97165; 97530; 97535; A9270; C1713; C1776; J0171; J0690; J1100; J1170; J1885; J2250; J2270; J2370; J2405; J2704; J2795; J3010; J3370; J7030; J7120

== ENCOUNTER 2021-07-10 19:24 | Emergency (ER) | payer MEDICARE, MEDICAID, SELFPAY ==
--- NOTE | ~2021-07-10 | XR_ITS ---
EXAM: XR wrist LT min 3V HISTORY: FALL, WRIST PAIN COMPARISON: None available FINDINGS: Decreased mineralization. Comminuted distal left radial fracture with extension to the rad ial carpal joint, dorsal cortical buckling, and mild impaction. No other fracture or dislocation. Ext ensive degenerative changes. IMPRESSION: Comminuted, mildly impacted distal left radial fracture. No other fracture detected. Reviewed, dictated and finalized at location K. IMPRESSION: Comminuted, mildly impacted distal left radial fracture. No other fracture dete cted.
[2021-07-10 19:35] VITALS: BP 137/83; PULSE 98; RESP 16; TEMP 37.9; O2SAT 98
--- NOTE | 2021-07-10 19:43 | ED.UPPEXIN ---
HPI - Extremity Injury (Upper) General Chief Complaint: Extremity Injury, Upper Stated Complaint: left wrist Time Seen by Provider: 07/10/21 19:43 Source: patient Mode of arrival: ambulatory Limitations: no limitations History of Present Illness HPI narrative: 80-year-old female presents with pain and swelling to left wrist. States that she was leaving home around 2 PM today for an orthopedic appointment regarding her left knee replacement and she tripped herself and over the dog leash and fell forward. States that she put her hands out in front of her to catch her self. Also hit her chin. Denies hitting head. Denies LOC was able to get up on her own. Sees Dr. Fajardo with orthopedics. All systems reviewed and negative except as noted above. Related Data Home Medications Medication Instructions Recorded Confirmed carvedilol 3.125 mg PO BID 02/19/19 07/10/21 gemfibrozil 600 mg PO BID 02/19/19 07/10/21 eyzdtusp-xefn-sbexvo-hyalur ac 3 cap PO DAILY 02/19/19 07/10/21 lisinopril 10 mg PO DAILY 02/19/19 07/10/21 paroxetine HCl 20 mg PO HS 02/19/19 07/10/21 cranberry extract 425 mg PO DAILY 04/05/19 07/10/21 meclizine 25 mg PO HS 05/23/20 07/10/21 rosuvastatin 20 mg PO HS 05/23/20 07/10/21 Allergies Allergy/AdvReac Type Severity Reaction Status Date / Time niacin Allergy Severe Hives / Verified 07/10/21 19:26 Red Face fluoxetine Allergy Mild Hives Verified 07/10/21 19:26 Sulfa (Sulfonamide Allergy Unknown LIP Verified 07/10/21 19:26 Antibiotics) SWELLING Review of Systems Review of Systems: CONSTITUTIONAL: Denies fever, chills, or sweats. EYES: Denies visual changes, redness, or discharge. ENT: Denies rhinorrhea, congestion, sore throat, or otalgia. CARDIOVASCULAR: Denies chest pain, palpitations, or edema. RESPIRATORY: Denies cough or dyspnea. GASTROINTESTINAL: Denies abdominal pain, nausea, vomiting, or diarrhea. GENITOURINARY: Denies dysuria or hematuria. SKIN: Denies rash or itching. Reports contusion and abrasion to chin. MUSCULOSKELETAL: Reports pain and swelling to left wrist. NEUROLOGIC: Denies headache, numbness, or weakness. PSYCHIATRIC: Denies anxiety or depression. All other systems reviewed are negative, except as documented in HPI. [facility] Past Medical History Medical History (Updated 07/10/21 @ 20:01 by Claudia Curry NP) Anxiety Arthritis Bronchospasm with bronchitis, acute Chronic kidney disease Depression Diabetes mellitus Diverticulitis HLD (hyperlipidemia) HTN (hypertension) Hypothyroidism Hypoxemia Infected sebaceous cyst of skin MRSA (methicillin resistant staph aureus) culture positive Obesity Obstructive sleep apnea Surgical History Surgical History (Updated 06/27/20 @ 15:26 by Simone Omer MD) H/O thyroidectomy H/O toe surgery Family History Family History Father Cerebrovascular accident Family history of malignant neoplasm Patient's father is Mother Family history of coronary artery disease Family history of malignant neoplasm Patient's mother is Sibling Patient's sister is in good health Family history of malignant neoplasm Patient's brother is Social History Social History Smoking status: Never smoker Second hand tobacco smoke exposure: No Alcohol intake: never Substance use: never Substance use type: does not use Additional living arrangements comments: DAUGHTER (HELENA) LIVES IN [facility] Gender identity (if verbalized by the patient): Female Sexual Orientation (if Verbalized by the Patient): Straight or Heterosexual Spiritual care concerns: No Agree to blood products: Yes Comments At time of signature, agree with nursing past medical, surgical, social and family history. There is no relevant family history pertinent to the presenting complaint. Ex
== END 2021-07-10 20:17 | disposition home or self-care (01) ==
PROVIDERS: Emergency Provider Nurse Practitioner Family; PCP Family Medicine Adolescent Medicine
DX: S52.502A Unspecified fracture of the lower end of left radius, initial encounter for closed fracture (principal); I10 Essential (primary) hypertension; E78.5 Hyperlipidemia, unspecified; E11.9 Type 2 diabetes mellitus without complications; E03.9 Hypothyroidism, unspecified; W01.0XXA Fall on same level from slipping, tripping and stumbling without subsequent striking against object, initial encounter
CPT/HCPCS: 29125; 73110; 99214; A4565; G0463

== ENCOUNTER 2021-11-04 10:49 | Outpatient (CLI) | payer MEDICARE, MEDICAID, SELFPAY ==
--- NOTE | ~2021-11-04 | XR_ITS ---
EXAMINATION: XR lg joint inject/asp w image DATE: 11/04/2021 11:31 INDICATION: Primary osteoarthritis of left shoulder. TECHNIQUE: A time-out was performed to verify the patient's name, date of , and procedure to b e performed. The procedure including the risks, benefits, and alternatives was discussed with the pat ient. Risks discussed included bleeding and infection. The patient understood the risks and agreed to proceed. The skin overlying the left glenohumeral joint was prepped and draped in usual sterile fas hion. Anesthetic was administered with 1% lidocaine subcutaneously. A 22 G needle was advanced unde r fluoroscopic guidance into the joint. Subsequently, injectate consisting of 3 mL 1% lidocaine and 1 mL 80 mg/mL Depo-Medrol was instilled. The needle was removed and the entry site was cleaned and d ressed. There were no immediate complications. Fluoroscopy exposure time was 0.0 minutes. The total number of images was 1. FINDINGS: Real-time fluoroscopy demonstrates the needle in the left glenohumeral joint. Patient's natalie n prior to procedure:10/16. Patient's pain following the procedure: 08/16. IMPRESSION: 1. Fluoroscopy guided left glenohumeral joint injection of local anesthetic and steroid with decrease in the patient's presenting pain. Reviewed, dictated and finalized at location A.
== END 2021-11-04 10:50 | disposition home or self-care (01) ==
LOC: ANHIMG 10:55
PROVIDERS: PCP Family Medicine Adolescent Medicine; Visit Provider Orthopaedic Surgery
DX: M19.012 Primary osteoarthritis, left shoulder (principal)
CPT/HCPCS: 20610; 77002; J1040

== ENCOUNTER 2023-01-23 13:30 | Outpatient (CLI) | payer MEDICARE, MEDICAID, SELFPAY ==
[2023-01-23 15:45] LABS: Basophils Absolute Auto 0.1 K/mm3 (0.0-0.1); Basophils Percent Auto 0.5 % (0.2-1.2); Eosinophils Percent Auto 0.1 % (0-4.4); Hematocrit 48.9 % (37.0-47.0); Hemoglobin 15.2 g/dL (12.0-15.0); Immature Granulocyte Absolute 0.06 K/mm3 (0.00-0.031); Immature Granulocyte Percent A 0.5 % (0-0.5); Lymphocytes Absolute Auto 1.98 K/mm3 (0.9-3.2); Lymphocytes Percent Auto 16.9 % (18.3-44.2); Mean Corpuscular HGB Conc 31.1 g/dl (32-36); Mean Corpuscular Hemoglobin 30.9 pg (26-34); Mean Corpuscular Volume 99.4 fl (80-100); Mean Platelet Volume 11.8 fl (7.4-10.4); Monocytes Absolute Auto 1.1 K/mm3 (0.1-0.6); Monocytes Percent Auto 9.2 % (2.6-8.5); Neutrophils Absolute Auto 8.5 K/mm3 (1.3-6.7); Neutrophils Percent Auto 72.8 % (45.5-73.1); Platelet Count Result 331 k/mm3 (150-375); Red Blood Count 4.92 M/mm3 (4.2-5.4); Red Cell Distribution Width 13.1 % (11.5-14.5); White Blood Count 11.7 K/mm3 (4.5-10.0)
[2023-01-23 15:56] LABS: Urine Cotinine NEGATIVE
[2023-01-23 16:05] LABS: Albumin Level 4.6 g/dL (3.5-5.1); Anion Gap 11 mmol/L (8-16); Blood Urea Nitrogen 23 mg/dL (7-17); Calcium 9.5 mg/dL (8.4-10.2); Carbon Dioxide 24 mmol/L (22-30); Chloride 108 mmol/L (98-107); Estimated Glomerular Filt Rate 48; Glucose 87 mg/dL (65-110); Sodium 143 mmol/L (137-145)
[2023-01-23 16:06] LABS: Hemoglobin A1C 5.6 % (<5.7)
== END 2023-01-23 13:31 | disposition home or self-care (01) ==
PROVIDERS: PCP Family Medicine Adolescent Medicine; Visit Provider Orthopaedic Surgery
DX: M17.12 Unilateral primary osteoarthritis, left knee (principal); Z01.818 Encounter for other preprocedural examination
CPT/HCPCS: 80048; 80307; 82040; 83036; 85025; 87081

== ENCOUNTER 2023-02-19 15:54 | Inpatient (IN) | payer MEDICARE, MEDICAID, SELFPAY ==
[2023-01-23 13:25] VITALS: BP 148/90; PULSE 96; RESP 20; TEMP 36.9; O2SAT 95; BMI 38.8
--- NOTE | 2023-01-23 13:28 | PC.NURSE ---
PRE-OP INSTRUCTIONS, PLEASE READ CAREFULLY Report to the Outpatient Waiting Room, entrance under the green pavilion located off [facility], at time _1000_ on date _02/18/23_. Planned Procedure Time: _1200_. PACK A SMALL OVERNIGHT BAG AND LEAVE IN THE CAR ALONG WITH YOUR WALKER Time changes happen often and if your time is changed the preop area will call you the afternoon before. - You and your visitor will be asked to self-screen and do not enter if you have any COVID symptoms. - A mask is optional within the hospital at this time. -VISITING HOURS 8AM-8PM Patients may have clear liquids (water, carbonated beverages, clear teas, apple juice) until 3 hours prior to surgery (0900 AM) with a maximum of 20 ounces. - No food from midnight until time of surgery Take the following medications with a SIP of water the morning of surgery: _ALPRAZOLAM, CARVEDILOL, LEVOTHYROXINE_ DO NOT STOP ANY OF YOUR OTHER PRESCRIPTION MEDICATIONS PRIOR TO SURGERY ?EXCEPT THE FOLLOWING Medications to discontinue per ANESTHESIA - _PROBIOTIC & SUPPLEMENTS 3 DAYS PRIOR TO SURGERY, Date to take last dose 02/14/23_ Please no make-up, nail vietnamese, hairspray, perfume, deodorant, or body powder the day of surgery. No jewelry (including any body piercings) or valuables the day of surgery, leave them at home. Please take a shower or bath the night before, or the morning of, surgery with an antibacterial soap. Wear comfortable, loose fitting clothing. - Jewelry must be removed prior to entering the operating room. Rings and piercings that are not removed may be cut off. - The hospital will not accept responsibility for valuables. - Please leave all valuables, including medications, at home the day of surgery. If you are going home after surgery, a licensed oil truck driver must drive you home. - NO public transportation without another adult if you receive anesthesia. - We recommend that an adult stay with you for 24 hours following discharge. - We also recommend that you do not drive, make important decision, drink alcoholic beverages, or take any drugs that were not prescribed by your health care provider for at least 24 hours after your discharge time. Follow any additional instructions given to you from your surgeon. If you or anyone in your household have experienced Covid symptoms in the past week, please notify your surgeon or the nurse liaison at the phone number below for possible testing. Instructions given to _PATIENT_and asked if any additional questions and then verbalized understanding. Patient advised to call surgeon office or pre surgery nurse liaison [phone] if any additional questions.
[2023-02-18] VITALS (11 sets, daily range): BP systolic 122–184; BP diastolic 60–88; PULSE 92–99; RESP 12–20; TEMP 36.4–36.6; O2SAT 92–96
--- NOTE | 2023-02-18 07:33 | PM.IMHP ---
H&P: HPI History of Present Illness Date/Time: 02/18/23 07:33 Chief Complaint: 82-year-old female patient of Dr. Gardiner who presents today for a left total knee arthroplasty. Patient underwent right total arthroplasty in 2020 is very happy with her results. She has severe medial compartment osteoarthritis in left knee. She has been treating this nonsurgically with occasional cortisone injections and nafi-naz-apvnnud anti-inflammatories. She has not gotten improvement from nonsurgical treatment and feels she would rather proceed with total knee arthroplasty at this point. She is a very active 82-year-old wishes to remain that way. Review of Systems Review of Systems: All systems reviewed & are unremarkable except as noted in HPI and below PMFSH Past Medical History Medical History (Updated 01/08/23 @ 19:47 by Edward Wall MD) Anxiety Arthritis Bronchospasm with bronchitis, acute Chronic kidney disease Depression Diabetes mellitus Diverticulitis HTN (hypertension) Hypothyroidism Hypoxemia Infected sebaceous cyst of skin MRSA (methicillin resistant staph aureus) culture positive Obesity Obstructive sleep apnea Surgical History Surgical History (Updated 01/01/23 @ 06:52 by Edward Wall MD) H/O thyroidectomy H/O toe surgery Hx of total knee replacement RIGHT Family History Family History Father Cerebrovascular accident Family history of malignant neoplasm Patient's father is Mother Family history of coronary artery disease Family history of malignant neoplasm Patient's mother is Sibling Patient's sister is in good health Family history of malignant neoplasm Patient's brother is Social History Social History Smoking status: Never smoker Second hand tobacco smoke exposure: No Additional smoking assessment comments: PT DENIES ALL FORMS OF TOBACCO USE Alcohol intake: never Substance use: never Substance use type: does not use Living arrangements: with family Additional living arrangements comments: LIVES WITH MENTALLY CHALLENGED 61 YR OLD DAUGHTER Berry PURCELL Gender identity (if verbalized by the patient): Female Sexual Orientation (if Verbalized by the Patient): Straight or Heterosexual Spiritual care concerns: No Agree to blood products: Yes Meds Home Medications and Allergies Home Medications Medication Instructions Recorded Confirmed Type glucosamin 375 mg-chond 300 3 cap PO DAILY 02/19/19 01/23/23 History mg-collagen 50 mg-hyaluronic acid 2 mg cap cranberry extract 425 mg capsule 425 mg PO DAILY 04/05/19 01/23/23 History melatonin 10 mg capsule 20 mg PO QHS 12/11/21 01/23/23 History paroxetine HCl 20 mg tablet 20 mg PO HS #30 tabs 11/16/22 01/23/23 Rx levothyroxine 75 mcg tablet See Rx Instructions .Route 11/28/22 01/23/23 Rx .COMPLEX #90 tabs rosuvastatin 20 mg tablet 20 mg PO HS #90 tabs 11/30/22 01/23/23 Rx carvedilol 3.125 mg tablet 3.125 mg PO DAILY #90 tabs 12/26/22 01/23/23 Rx metformin 500 mg tablet 500 mg PO BID #180 tabs 12/26/22 01/23/23 Rx gemfibrozil 600 mg tablet 600 mg PO BID #180 tabs 01/12/23 01/23/23 Rx alprazolam 0.5 mg tablet (Xanax) 0.5 mg PO DAILY #90 tabs 01/19/23 01/23/23 Rx Probiotic 1 tab-cap DAILY 01/23/23 01/23/23 History diphenhydramine HCl 50 mg tablet 50 mg PO HS PRN Insomnia 01/23/23 01/23/23 History lisinopril 10 mg tablet 10 mg PO DAILY #90 tabs 02/08/23 Rx Allergies Allergy/AdvReac Type Severity Reaction Status Date / Time niacin Allergy Severe Hives / Verified 01/23/23 13:54 Red Face fluoxetine Allergy Mild Hives Verified 01/23/23 13:54 Sulfa (Sulfonamide Allergy Unknown LIP Verified 01/23/23 13:54 Antibiotics) SWELLING Exam Narrative: 82-year-old female alert pleasant. She is 5 ft tall and 206 lb her BMI is 38.
[2023-02-18] MEDS: VANCOMYCIN 1,500 MG/NS 500 ML BAG 250 MG IVPB (11:00)
[2023-02-18] MEDS: TRANEXAMIC ACID 1,000MG/ISO100 1,000 MG/100 ML BAG 200 MG IVPB (11:00)
[2023-02-18] MEDS: ACETAMINOPHEN 500 MG TABLET 1000 MG PO (11:00)
--- NOTE | 2023-02-18 11:55 | WPDHPUPDATE1 ---
History and Physical Update Update Date/Time: 02/18/23 11:55 History and Physical has been reviewed, including an updated exam of the patient. There are NO changes in the patient's condition. Risks, benefits, and alternatives have been discussed and questions answered. Patient agrees to proceed with procedure.
--- NOTE | 2023-02-18 12:02 | WPDANESEPPF ---
Anes - Initial Pre Proc Eval Procedure: Operation Date: 02/18/23 12:00 Proposed Procedures p Left Total Knee Arthroplasty - Giorgio Duke MD Date/Time: 02/18/23 12:02 Surgeon: Giorgio Duke MD Pre Op Diagnosis: left knee oa Patient Data Age: 82 Gender: F Height: 1.55 m Weight: 94 kg Last Vital Signs Temp 36.9 C 01/23/23 13:25 Pulse 96 01/23/23 13:25 Resp 20 01/23/23 13:25 BP 148/90 H 01/23/23 13:25 Pulse Ox 95 01/23/23 13:25 O2 Del Method Room Air 01/23/23 13:25 Allergies Allergy/AdvReac Type Severity Reaction Status Date / Time niacin Allergy Severe Hives / Verified 02/18/23 10:34 Red Face fluoxetine Allergy Mild Hives Verified 02/18/23 10:34 Sulfa (Sulfonamide Allergy Unknown LIP Verified 02/18/23 10:34 Antibiotics) SWELLING Home Medications Medication Instructions Recorded Confirmed Type glucosamin 375 mg-chond 300 3 cap PO DAILY 02/19/19 02/18/23 History mg-collagen 50 mg-hyaluronic acid 2 mg cap cranberry extract 425 mg capsule 425 mg PO DAILY 04/05/19 02/18/23 History melatonin 10 mg capsule 20 mg PO QHS 12/11/21 02/18/23 History paroxetine HCl 20 mg tablet 20 mg PO HS #30 tabs 11/16/22 02/18/23 Rx levothyroxine 75 mcg tablet See Rx Instructions .Route 11/28/22 02/18/23 Rx .COMPLEX #90 tabs rosuvastatin 20 mg tablet 20 mg PO HS #90 tabs 11/30/22 02/18/23 Rx carvedilol 3.125 mg tablet 3.125 mg PO DAILY #90 tabs 12/26/22 02/18/23 Rx metformin 500 mg tablet 500 mg PO BID #180 tabs 12/26/22 02/18/23 Rx gemfibrozil 600 mg tablet 600 mg PO BID #180 tabs 01/12/23 02/18/23 Rx alprazolam 0.5 mg tablet (Xanax) 0.5 mg PO DAILY #90 tabs 01/19/23 02/18/23 Rx Probiotic 1 tab-cap DAILY 01/23/23 02/18/23 History diphenhydramine HCl 50 mg tablet 50 mg PO HS PRN Insomnia 01/23/23 02/18/23 History lisinopril 10 mg tablet 10 mg PO DAILY #90 tabs 02/08/23 02/18/23 Rx Patient hx anesthesia problems: none Family hx anesthesia problems: none Results Review: All pre-operative results and documents have been reviewed as part of the pre-operative evaluation. [facility] Past Medical History Medical History Anxiety Arthritis Bronchospasm with bronchitis, acute Chronic kidney disease Depression Diabetes mellitus Diverticulitis HTN (hypertension) Hypothyroidism Hypoxemia Infected sebaceous cyst of skin MRSA (methicillin resistant staph aureus) culture positive Obesity Obstructive sleep apnea Surgical History Surgical History H/O thyroidectomy H/O toe surgery Hx of total knee replacement RIGHT Family History Family History Father Cerebrovascular accident Family history of malignant neoplasm Patient's father is Mother Family history of coronary artery disease Family history of malignant neoplasm Patient's mother is Sibling Patient's sister is in good health Family history of malignant neoplasm Patient's brother is Social History Social History Smoking status: Never smoker Second hand tobacco smoke exposure: No Additional smoking assessment comments: PT DENIES ALL FORMS OF TOBACCO USE Alcohol intake: never Substance use: never Substance use type: does not use Living arrangements: with family Additional living arrangements comments: LIVES WITH MENTALLY CHALLENGED 61 YR OLD DAUGHTER Berry PURCELL Gender identity (if verbalized by the patient): Female Sexual Orientation (if Verbalized by the Patient): Straight or Heterosexual Spiritual care concerns: No Agree to blood products: Yes Anes - Eval Final PreProcedure Day of Procedure 02/18/23 12:02 Patient weight: morbidly obese Heart: regular rate and rhythm Lungs: clear to auscultation [place]
[2023-02-18] MEDS: ceFAZolin 2 GM/D5W 50 ML 2 GM/50 ML BAG IVPB (12:07)
[2023-02-18] MEDS: ceFAZolin SODIUM 1 GM VIAL 3 GM (12:52)
[2023-02-18] MEDS: GENTAMICIN BONE CEMENT REFOBACIN 1 EACH TOPICAL (12:53)
[2023-02-18] MEDS: TRANEXAMIC ACID 1,000 MG/10 ML AMPUL 1000 MG IV PUSH (14:17)
[2023-02-18] MEDS: ceFAZolin SODIUM 1 GM VIAL 2 GM IV PUSH (14:17)
[2023-02-18] MEDS: LACTATED RINGERS 1,000 ML 30 ML IV CONT ×2 (15:29)
--- NOTE | 2023-02-18 15:43 | W.PM.PROC2 ---
Procedure Note - Detailed Date of Procedure 02/18/23 Pre-op Diagnosis left knee oa Post-op Diagnosis Same Procedure Performed Left knee arthroplasty Surgeon Giorgio Duke MD Steamer Operator [facility] Anesthesia General Description of Procedure Patient was brought to the operating room and general anesthesia administered. She received 2 g of Ancef weight based vancomycin 1 g of tranexamic acid preoperatively. The left knee was prepped draped usual fashion. Limb was exsanguinated tourniquet elevated to 300 mmHg. A 7 in longitudinal midline incision was using a vastus medialis splitting approach utilized splitting the vastus medial side at the superior pole of the patella. Partial infrapatellar fat pad excision was performed quadriceps synovectomy carried out. The patella measured 20.5 mm in thickness were was eburnated centrally and somewhat scalloped. We cut this to 14.5 mm and applied a protector cap. A guide christiano was inserted on femoral canal after aspiration of canal contents using the 5 degree valgus cutting bushing 9 mm of bone removed the distal femur. The tibia was cut next perpendicular to the axis of the tibia removing mm bone from the low wear point of the medial tibial plateau. Meniscal remnants were excised the PCL was recessed. Flexion gap showed 8 mm medially and 12 mm laterally at 90?. Femoral sizing guide was applied the distal femur set at 5? of external rotation. Posterior referencing pinholes were placed we applied the 62.5 cutting block which gave a nice fit flush with the anterior cortex and fitting essentially line to line medial to lateral. The lateral side it hung over a mm anterior distal. Downsizing would have notched. We had adequate flexion gap at 90? with 2 mm of medial and lateral opening at 90? with the 10 mm CR insert. The tibia was sized to a size 67 which fit line to line anteromedial to posterolateral at proper rotation and this was punched. We trialed with the 10 insert and we had very nice stability a mm of opening both medially and laterally at 90?. In extension however we lacked about 6 or 7?. There was no play medially or laterally. Additional 2 mm of bone removed the distal femur. Large posterior femoral osteophyte was removed medially. On read trialing the knee add a barely positive bounce had 2 mm medially and 2 mm lateral opening. Stability at 90? was still appropriate. A conservative posterior central capsular release was performed she did have a 5 degree flexion contracture under anesthesia preoperatively. We then trialed again and this time the knee came out to full extension with negative bounce 1-2 medial and lateral opening in full extension. Lug holes were drilled in the femur. The patella was sized to the 31 thin lug holes were drilled composite thickness 20.5 mm. Step drill was used to make multiple perforations in the tibial plateau and distal femur the bony surfaces thoroughly irrigated and dried. Using 2 batches of methylmethacrylate 1 the gentamicin powder the cement was mixed and medially applied the 67 vanguard tibial tray then the 62.5 left cruciate retaining femoral component. Cement applied the tibia tibial component fully seated cement applied the femur the femoral component fully seated the knee brought to extension with 11 mm 5 1 insert for pressurization. Thirty-one thin patella cemented. Tourniquet was released at 99 minutes. After cement hardening excess cement was sought for and hemostasis was achieved. We trialed with a 10 insert and felt appropriate in all positions. We trialed with the 11 and it was too tight both in flexion and in extension with no play mediolaterally and extension and positive bounce. The 10 insert was placed without difficulty locked the locking pin range of motion stability and patellar tracking reconfirmed. Local anesthetic cocktail was injected the wound irrigated again with antibiotic solution closed with 2. Vicryl the in the arthrotomy a 1. [place]
[2023-02-18 15:50] LABS: Glucose Point of Care 138 mg/dl (65-105)
[2023-02-18] MEDS: fentaNYL CITRATE INJ (*CRX) 100 MCG/2 ML VIAL 25 MCG IV PUSH ×7 (16:27→16:58)
--- NOTE | 2023-02-18 17:26 | ADMGEN ---
This patient, Dayanara Bucio, was admitted to 2 Medical Room 260-. Patient/family oriented to hospital policies and general routines including ID bracelet, bed and alarms, visiting hours, pain management, procedures, bathroom and other care routines, personal items, smoking policy, room service/diet, and visiting hours. Information on how to activate the Rapid Response Team has been discussed. Patient/Family are encouraged to report perceived risks to care and to ask questions if they do not understand what they are told or what they should do.
[2023-02-18] MEDS: metFORMIN HCL 500 MG TABLET PO (18:23)
[2023-02-18] MEDS: SENNA/DOCUSATE SODIUM TABLET 2 TAB PO (18:23)
[2023-02-18] MEDS: ACETAMINOPHEN 325 MG TABLET 650 MG PO ×2 (18:23→20:26)
[2023-02-18] MEDS: oxyCODONE HCL (*CRX) 2.5 MG TAB IR PO ×2 (18:23→20:26)
[2023-02-18 20:05] LABS: Glucose Point of Care 166 mg/dl (65-105)
[2023-02-18] MEDS: MELATONIN 5 MG TABLET 20 MG PO (20:26)
[2023-02-18] MEDS: PARoxetine 20 MG TABLET PO (20:26)
[2023-02-18] MEDS: ceFAZolin 1 GM/NS 50 ML 1 GM/50 ML BAG IVPB (20:26)
[2023-02-18] MEDS: ROSUVASTATIN 20 MG TABLET PO (20:26)
[2023-02-18] MEDS: oxyCODONE HCL (*CRX) 5 MG TAB IR PO (21:22)
[2023-02-18] MEDS: VANCOMYCIN 1,000 MG/NS 250 ML 1,000 MG/250 ML BAG 250 MG IVPB (23:42)
[2023-02-18] MEDS: oxyCODONE HCL (*CRX) 5 MG TAB IR 10 MG PO (23:50)
--- NOTE | ~2023-02-19 | XR_ITS ---
EXAM: [id number] DATE: 02/18/2023 15:28 HISTORY: LT TOTAL KNEE . COMPARISON: 05/01/2018. FINDINGS/IMPRESSION: Expected postsurgical changes, status post left knee arthroplasty, with no radio graphic evidence of procedure or hardware related complication. Reviewed, dictated and finalized at location [facility]
[2023-02-19] MEDS: ACETAMINOPHEN 325 MG TABLET 650 MG PO ×4 (00:56→20:36)
[2023-02-19 00:58] VITALS: BP 121/51; PULSE 93; RESP 19; TEMP 36.8; O2SAT 98
--- NOTE | 2023-02-19 01:51 | PM.IMHP ---
H&P: HPI History of Present Illness Date/Time: 02/19/23 01:51 Chief Complaint: consult for medical management Narrative: patient is an 82-year-old female who had left total knee arthroplasty yesterday and we are consulted for medical management. she has history of hypertension, diabetes, hypothyroidism and anxiety disorder. Her blood pressure has been well controlled likewise diabetes all went home medications. she denies any complaint currently Review of Systems Review of Systems: All systems reviewed & are unremarkable except as noted in HPI and below PMFSH Past Medical History Medical History Anxiety Arthritis Bronchospasm with bronchitis, acute Chronic kidney disease Depression Diabetes mellitus Diverticulitis HTN (hypertension) Hypothyroidism Hypoxemia Infected sebaceous cyst of skin MRSA (methicillin resistant staph aureus) culture positive Obesity Obstructive sleep apnea Surgical History Surgical History (Updated 02/19/23 @ 01:[address]h MD) H/O thyroidectomy H/O toe surgery History of total left knee replacement (02/2023) Hx of total knee replacement RIGHT Family History Family History Father Cerebrovascular accident Family history of malignant neoplasm Patient's father is Mother Family history of coronary artery disease Family history of malignant neoplasm Patient's mother is Sibling Patient's sister is in good health Family history of malignant neoplasm Patient's brother is Social History Social History Smoking status: Never smoker Second hand tobacco smoke exposure: No Additional smoking assessment comments: PT DENIES ALL FORMS OF TOBACCO USE Alcohol intake: never Substance use: never Substance use type: does not use Lack of Transportation: No Lack of Food: Never True Current Housing: I Have Housing Concerned About Future Housing: No Difficulty Paying Gas/Electric Bills: No Difficulty Paying for Meds: No Currently Unemployed: No Education: High School Diploma/GED Difficulty w/ Childcare or Family Care: No Living arrangements: with family Additional living arrangements comments: LIVES WITH MENTALLY CHALLENGED 61 YR OLD DAUGHTER Berry PURCELL Gender identity (if verbalized by the patient): Female Sexual Orientation (if Verbalized by the Patient): Straight or Heterosexual Spiritual care concerns: No Agree to blood products: Yes Meds Home Medications and Allergies Home Medications Medication Instructions Recorded Confirmed Type glucosamin 375 mg-chond 300 3 cap PO DAILY 02/19/19 02/18/23 History mg-collagen 50 mg-hyaluronic acid 2 mg cap cranberry extract 425 mg capsule 425 mg PO DAILY 04/05/19 02/18/23 History melatonin 10 mg capsule 20 mg PO QHS 12/11/21 02/18/23 History paroxetine HCl 20 mg tablet 20 mg PO HS #30 tabs 11/16/22 02/18/23 Rx levothyroxine 75 mcg tablet See Rx Instructions .Route 11/28/22 02/18/23 Rx .COMPLEX #90 tabs rosuvastatin 20 mg tablet 20 mg PO HS #90 tabs 11/30/22 02/18/23 Rx carvedilol 3.125 mg tablet 3.125 mg PO DAILY #90 tabs 12/26/22 02/18/23 Rx metformin 500 mg tablet 500 mg PO BID #180 tabs 12/26/22 02/18/23 Rx gemfibrozil 600 mg tablet 600 mg PO BID #180 tabs 01/12/23 02/18/23 Rx alprazolam 0.5 mg tablet (Xanax) 0.5 mg PO DAILY #90 tabs 01/19/23 02/18/23 Rx Probiotic 1 tab-cap DAILY 01/23/23 02/18/23 History diphenhydramine HCl 50 mg tablet 50 mg PO HS PRN Insomnia 01/23/23 02/18/23 History lisinopril 10 mg tablet 10 mg PO DAILY #90 tabs 02/08/23 02/18/23 Rx Allergies Allergy/AdvReac Type Severity Reaction Status Date / Time niacin Allergy Severe Hives / Verified 02/18/23 10:34 Red Face fluoxetine Allergy Mild Hives Verified 02/18/23 10:34
[2023-02-19] MEDS: oxyCODONE HCL (*CRX) 5 MG TAB IR PO ×2 (03:55→09:20)
[2023-02-19] MEDS: ceFAZolin 1 GM/NS 50 ML 1 GM/50 ML BAG IVPB ×2 (04:11→12:25)
[2023-02-19 04:58] VITALS: BP 120/53; PULSE 91; RESP 19; TEMP 36.2; O2SAT 91
[2023-02-19] MEDS: LEVOTHYROXINE SODIUM 75 MCG TABLET PO (06:13)
[2023-02-19 06:21] LABS: Basophils Percent Auto 0.3 % (0.2-1.2); Hematocrit 40.5 % (37.0-47.0); Hemoglobin 12.7 g/dL (12.0-15.0); Immature Granulocyte Absolute 0.04 K/mm3 (0.00-0.031); Immature Granulocyte Percent A 0.3 % (0-0.5); Lymphocytes Absolute Auto 1.61 K/mm3 (0.9-3.2); Lymphocytes Percent Auto 11.5 % (18.3-44.2); Mean Corpuscular HGB Conc 31.4 g/dl (32-36); Mean Corpuscular Hemoglobin 31.2 pg (26-34); Mean Corpuscular Volume 99.5 fl (80-100); Mean Platelet Volume 11.4 fl (7.4-10.4); Monocytes Absolute Auto 1.6 K/mm3 (0.1-0.6); Monocytes Percent Auto 11.3 % (2.6-8.5); Neutrophils Absolute Auto 10.7 K/mm3 (1.3-6.7); Neutrophils Percent Auto 76.6 % (45.5-73.1); Platelet Count Result 245 k/mm3 (150-375); Red Blood Count 4.07 M/mm3 (4.2-5.4); Red Cell Distribution Width 12.9 % (11.5-14.5)
[2023-02-19 06:35] LABS: Anion Gap 7 mmol/L (8-16); Blood Urea Nitrogen 19 mg/dL (7-17); Calcium 8.7 mg/dL (8.4-10.2); Carbon Dioxide 23 mmol/L (22-30); Chloride 106 mmol/L (98-107); Estimated CRCL calculation 46 ml/min; Estimated Glomerular Filt Rate 60; Glucose 125 mg/dL (65-110); Potassium 4.5 mmol/L (3.4-5.0); Sodium 136 mmol/L (137-145)
--- NOTE | 2023-02-19 07:37 | PM.PNORT ---
Progress Note: A&P Assessment and Plan (1) Status post total knee replacement, left: Code(s): Z96.652 - Presence of left artificial knee joint Status: Acute Plan Patient looks good this morning pain well controlled. She will start physical therapy today, we will await transfer to [facility] for her postop care. When this has been arranged we will discharge her. Patient voiced understanding and agreed with the above plan and states she understood the postoperative instructions. Subjective Subjective Date/Time Seen: 02/19/23 07:37 Interval history: Patient was seen this morning status post left total knee arthroplasty, she is postop day 1. The patient was up to the restroom today with the therapist states this when okay. She is tolerating p.o. well alert without complaints. She is awaiting transfer to [facility] for her postop recovery. Today at bedside we discussed postoperative instructions including not letting her leg hang down more than 30 minutes she is to keep it elevated while she is on her back above the heart most of the time except for being up about every hour to move around and also work on her exercise range of motion therapy program. She is advised not to use any ice on the incision. She may shower with the dressing in place change dressing in 1 week. She will follow-up 2 weeks postop for recheck with Dr. Duke. She will be weight-bearing as tolerated with a walker at all times and she is advised not to put any ice on the incision. The patient will be given a postoperative instruction sheet prior to her discharge as well and we will go over the instructions 1 more time prior to her discharge to [facility]. The patient voiced understanding. Review of Systems Review of Systems: Ten point review of systems otherwise negative Exam Narrative: On exam today the patient is noted be in no acute distress alert oriented x3. Normal mood and affect. Very pleasant this morning pain is well controlled. Vital signs are stable she is afebrile neurovascularly she is intact wound dressing clean and dry calves are benign. Was able to get up and ambulate a short distance to the restroom with the help of the therapist. Objective Data Vital Signs Vital Signs: Vital Signs - 24 hr 02/18/23 15:29 02/18/23 15:40 02/18/23 15:55 Temperature 36.6 C Pulse Rate 92 95 95 Respiratory Rate 20 16 14 Blood Pressure 146/68 H 163/79 H 183/88 H Pulse Oximetry 93 95 95 Oxygen Delivery Simple Face Mask Simple Face Mask Simple Face Mask Oxygen Flow Rate 10 10 10 02/18/23 16:10 02/18/23 16:16 02/18/23 16:25 Temperature Pulse Rate 99 97 Respiratory Rate 14 12 Blood Pressure 184/87 H 173/79 H Pulse Oximetry 94 94 95 Oxygen Delivery Simple Face Mask Nasal Cannula Nasal Cannula Oxygen Flow Rate 10 2 2 02/18/23 16:40 02/18/23 16:55 02/18/23 17:10 Temperature Pulse Rate 93 98 97 Respiratory Rate 12 12 12 Blood Pressure 161/77 H 162/75 H 144/60 H Pulse Oximetry 92 95 95 Oxygen Delivery Nasal Cannula Nasal Cannula Nasal Cannula Oxygen Flow Rate 2 2 2 02/18/23 18:43 02/18/23 20:58 02/19/23 00:58 Temperature 36.4 C L 36.8 C Pulse Rate 99 93 Respiratory Rate 19 19 Blood Pressure 122/65 121/51 L Pulse Oximetry 95 96 98 Oxygen Delivery Nasal Cannula Oxygen Flow Rate 2 02/19/23 04:58 Temperature 36.2 C L Pulse Rate 91 Respiratory Rate 19 Blood Pressure 120/53 L Pulse Oximetry 91 Oxygen Delivery Oxygen Flow Rate Intake/Output Intake/Output: Intake & Output 02/16/23 02/17/23 02/18/23 02/19/23 23:59 23:59 23:59 23:59 Intake Total 1060 300 Balance 1060 300 Meds/Results Medications: Active Medications Generic Name Dose Route Start Last Admin Trade Name Juanq PRN Reason Stop Dose Admin Acetaminophen 650 mg 02/18/23 16:00 02/19/23 03:58 Acetaminophen 325 Mg Tablet PO 650 mg Q4H DIONI Administration Alprazolam 0.25
[2023-02-19 07:56] LABS: Vitamin D 25 Hydroxy < 12.8 ng/mL
--- NOTE | 2023-02-19 08:10 | WPDANESPN ---
Anes - Prog Note Post-Op Date/Time: 02/19/23 08:10 Cardiovascular status: normal Respiratory status: normal Airway patency: baseline Mental status: baseline Post-Op hydration status: normal Vital Signs: Last Vital Signs Temp 36.2 C L 02/19/23 04:58 Pulse 91 02/19/23 04:58 Resp 19 02/19/23 04:58 BP 120/53 L 02/19/23 04:58 Pulse Ox 91 02/19/23 04:58 O2 Del Method Nasal Cannula 02/18/23 18:43 O2 Flow Rate 2 02/18/23 18:43 Pain Score (VAS): 05/16 I/O: Intake & Output 02/18/23 02/19/23 02/19/23 23:59 07:59 15:59 Intake Total 410 300 Balance 410 300 Laboratory Tests 02/19/23 05:28 02/19/23 05:28 02/18/23 02/18/23 02/18/23 11:22 15:46 19:59 WBC RBC Hgb Hct MCV MCH MCHC RDW Plt Count MPV Immature Gran % (Auto) Neut % (Auto) Lymph % (Auto) Grainger % (Auto) Eos % (Auto) Baso % (Auto) Lymph # (Auto) Grainger # (Auto) Eos # (Auto) Baso # (Auto) Abs Immat Gran (auto) Absolute Neuts (auto) Absolute Nucleated RBC Nucleated RBC % Sodium Potassium Chloride Carbon Dioxide Anion Gap BUN Creatinine Estim Creat Clear Calc Estimated GFR Glucose POC Capillary Glucose 138 H 166 H Calcium Vitamin D 25-Hydroxy Blood Type O Positive Antibody Screen Negative 02/19/23 05:28 WBC 14.0 H RBC 4.07 L Hgb 12.7 Hct 40.5 MCV 99.5 MCH 31.2 MCHC 31.4 L RDW 12.9 Plt Count 245 MPV 11.4 H Immature Gran % (Auto) 0.3 Neut % (Auto) 76.6 H Lymph % (Auto) 11.5 L Grainger % (Auto) 11.3 H Eos % (Auto) 0.0 Baso % (Auto) 0.3 Lymph # (Auto) 1.61 Grainger # (Auto) 1.6 H Eos # (Auto) 0.0 Baso # (Auto) 0.0 Abs Immat Gran (auto) 0.04 H Absolute Neuts (auto) 10.7 H Absolute Nucleated RBC 0.0 Nucleated RBC % 0.0 Sodium 136 L Potassium 4.5 Chloride 106 Carbon Dioxide 23 Anion Gap 7 L BUN 19 H Creatinine 0.90 Estim Creat Clear Calc 46 Estimated GFR 60 Glucose 125 H POC Capillary Glucose Calcium 8.7 Vitamin D 25-Hydroxy < 12.8 Blood Type Antibody Screen Post-procedural complaints: none Patient Feedback: Patient satisfied with anesthetic care.
[2023-02-19 08:43] LABS: Glucose Point of Care 142 mg/dl (65-105)
[2023-02-19 09:15] VITALS: BP 114/50; PULSE 97; RESP 18; TEMP 36; O2SAT 93
[2023-02-19] MEDS: SENNA/DOCUSATE SODIUM TABLET 2 TAB PO ×2 (09:19→17:19)
[2023-02-19 09:20] VITALS: PULSE 97
[2023-02-19] MEDS: carvediloL 3.125 MG TABLET PO (09:20)
[2023-02-19] MEDS: metFORMIN HCL 500 MG TABLET PO ×2 (09:20→17:19)
[2023-02-19] MEDS: polyethylene glycoL 3350 17 GM POWD.PACK PO (09:21)
[2023-02-19] MEDS: APIXABAN 2.5 MG TABLET PO ×2 (09:22→20:37)
[2023-02-19] MEDS: VANCOMYCIN 1,000 MG/NS 250 ML 1,000 MG/250 ML BAG 252 MG IVPB (11:05)
[2023-02-19 11:50] LABS: Glucose Point of Care 134 mg/dl (65-105)
[2023-02-19] MEDS: ERGOCALCIFEROL 50,000 UNITS CAPSULE 50000 UNITS PO (13:23)
[2023-02-19 14:17] VITALS: BP 106/44; PULSE 98; RESP 16; TEMP 36.1; O2SAT 95
[2023-02-19] MEDS: oxyCODONE HCL (*CRX) 5 MG TAB IR 10 MG PO ×2 (16:52→20:36)
[2023-02-19 17:12] LABS: Glucose Point of Care 132 mg/dl (65-105)
[2023-02-19 20:03] VITALS: BP 147/68; PULSE 100; RESP 20; TEMP 36.4; O2SAT 95
[2023-02-19] MEDS: ALPRAZolam (*CRX) 0.25 MG TABLET PO (20:35)
[2023-02-19] MEDS: ROSUVASTATIN 20 MG TABLET PO (20:36)
[2023-02-19] MEDS: DOXYCYCLINE HYCLATE 100 MG TABLET PO (20:37)
[2023-02-19] MEDS: PARoxetine 20 MG TABLET PO (20:37)
[2023-02-19] MEDS: MELATONIN 5 MG TABLET 20 MG PO (20:37)
[2023-02-20] MEDS: ACETAMINOPHEN 325 MG TABLET 650 MG PO ×6 (00:05→20:19)
[2023-02-20] MEDS: oxyCODONE HCL (*CRX) 5 MG TAB IR 10 MG PO ×2 (00:07→08:27)
[2023-02-20 00:23] VITALS: BP 114/49; PULSE 103; RESP 20; TEMP 36.3; O2SAT 94
[2023-02-20 04:22] LABS: Glucose Point of Care 140 mg/dl (65-105)
[2023-02-20] MEDS: LEVOTHYROXINE SODIUM 75 MCG TABLET PO (05:18)
[2023-02-20 05:38] VITALS: BP 113/49; PULSE 98; RESP 20; TEMP 36.4; O2SAT 93
[2023-02-20 08:20] VITALS: PULSE 90
[2023-02-20] MEDS: carvediloL 3.125 MG TABLET PO (08:20)
[2023-02-20] MEDS: DOXYCYCLINE HYCLATE 100 MG TABLET PO ×2 (08:20→20:19)
[2023-02-20] MEDS: APIXABAN 2.5 MG TABLET PO ×2 (08:20→20:19)
[2023-02-20] MEDS: SENNA/DOCUSATE SODIUM TABLET 2 TAB PO ×2 (08:20→16:00)
[2023-02-20] MEDS: metFORMIN HCL 500 MG TABLET PO ×2 (08:20→16:01)
[2023-02-20] MEDS: polyethylene glycoL 3350 17 GM POWD.PACK PO (08:21)
[2023-02-20 08:25] LABS: Glucose Point of Care 127 mg/dl (65-105)
--- NOTE | 2023-02-20 09:13 | PM.PNORT ---
Progress Note: A&P Assessment and Plan (1) Status post total knee replacement, left: Code(s): Z96.652 - Presence of left artificial knee joint Status: Acute Plan Patient is slowly progressing after left total knee arthroplasty, postop day 2. Awaiting transfer to [facility] for further postop care. We will add some Zofran to help with the nausea I have advised her to take the pain medication with food make sure she is getting plenty of fluids. I will talk to the home health care provider about transfer to [facility]. The patient voiced understanding and agrees above plan she will continue to work on physical therapy here. We will monitor her nausea as well. Subjective Subjective Date/Time Seen: 02/20/23 09:13 Interval history: Patient is up in the chair ate breakfast this morning was doing okay but then became a little nauseated and actually vomited x1. She has been a little nauseated from the oxycodone but states that is helping her sleep she slept pretty well last night by her report. Going slowly in therapy but otherwise doing well. We are waiting transfer to [facility] for rehab therapy and postop care. Review of Systems Review of Systems: Nauseated otherwise 10 point review of systems negative. Exam Narrative: Vital signs stable afebrile neurovascularly intact wound clean and dry calves benign alert oriented x3. Normal mood and affect. Going slowly in physical therapy making some progress. Having some pain and pain medication has caused some nausea she did vomit this morning otherwise feels well. Slept okay last night by her report. Objective Data Vital Signs Vital Signs: Vital Signs - 24 hr 02/19/23 09:20 02/19/23 09:15 02/19/23 14:17 Temperature 36.0 C L 36.1 C L Pulse Rate 97 97 98 Respiratory Rate 18 16 Blood Pressure 114/50 L 106/44 L Pulse Oximetry 93 95 Oxygen Delivery 02/19/23 20:03 02/20/23 00:23 02/19/23 20:20 Temperature 36.4 C L 36.3 C L Pulse Rate 100 103 H Respiratory Rate 20 20 Blood Pressure 147/68 H 114/49 L Pulse Oximetry 95 94 Oxygen Delivery Room Air 02/20/23 05:38 02/20/23 08:20 Temperature 36.4 C Pulse Rate 98 90 Respiratory Rate 20 Blood Pressure 113/49 L Pulse Oximetry 93 Oxygen Delivery Intake/Output Intake/Output: Intake & Output 02/17/23 02/18/23 02/19/23 02/20/23 23:59 23:59 23:59 23:59 Intake Total 1060 1120 390 Output Total 200 200 Balance 1060 920 190 Meds/Results Medications: Active Medications Generic Name Dose Route Start Last Admin Trade Name Freq PRN Reason Stop Dose Admin Acetaminophen 650 mg 02/18/23 16:00 02/20/23 08:21 Acetaminophen 325 Mg Tablet PO 650 mg Q4H DIONI Administration Alprazolam 0.25 mg 02/18/23 17:17 02/19/23 20:35 Alprazolam (*Crx) 0.25 Mg Tablet PO 0.25 mg DAILY PRN Administration Anxiety Apixaban 2.5 mg 02/19/23 09:00 02/20/23 08:20 Apixaban 2.5 Mg Tablet PO 2.5 mg Q12HR DIONI Administration Calcium Citrate 1 tablet 02/19/23 17:00 02/19/23 17:19 Calcium Citrate 315 Mg/Vitamin D 250 Units Tab PO 1 tablet BID@1200,1700 DIONI Administration Carvedilol 3.125 mg 02/19/23 09:00 02/20/23 08:20 Carvedilol 3.125 Mg Tablet PO 3.125 mg DAILY DIONI Administration Dextrose 12.5 gm 02/18/23 17:17 Dextrose 50% 25 Gm/50 Ml Syringe IV PUSH PRN PRN Hypoglycemia Protocol Diphenhydramine HCl 50 mg 02/18/23 17:17 Diphenhydramine Hcl Cap 25 Mg Capsule PO HS PRN Insomnia Doxycycline Hyclate 100 mg 02/19/23 21:00 02/20/23 08:20 Doxycycline Hyclate 100 Mg Tablet PO 03/03/23 20:59 100 mg Q12HR DIONI Administration Ergocalciferol 50,000 units 02/19/23 13:05 02/19/23 13:23 Ergocalciferol 50,000 Units Capsule PO 04/09/23 09:01 50,000 units WEEKLY DIONI Administration Gemfibrozil 600 mg 02/18/23 17:17 Gemfibrozil 600 Mg Tablet PO BID DIONI Glucagon 1 mg 02/18
[2023-02-20 09:21] LABS: Hematocrit 39.5 % (37.0-47.0); Hemoglobin 12.8 g/dL (12.0-15.0); Mean Corpuscular HGB Conc 32.4 g/dl (32-36); Mean Corpuscular Hemoglobin 31.8 pg (26-34); Mean Platelet Volume 11.2 fl (7.4-10.4); Platelet Count Result 227 k/mm3 (150-375); Red Blood Count 4.03 M/mm3 (4.2-5.4); Red Cell Distribution Width 12.7 % (11.5-14.5)
[2023-02-20 09:32] LABS: Alanine Aminotransferase 11 U/L (6-35); Albumin Level 3.8 g/dL (3.5-5.1); Alkaline Phosphatase 88 U/L (38-126); Anion Gap 9 mmol/L (8-16); Aspartate Amino Transferase 23 U/L (14-36); Bilirubin,Total 0.7 mg/dL (0.2-1.3); Blood Urea Nitrogen 15 mg/dL (7-17); Calcium 9.2 mg/dL (8.4-10.2); Carbon Dioxide 21 mmol/L (22-30); Chloride 105 mmol/L (98-107); Estimated CRCL calculation 51 ml/min; Estimated Glomerular Filt Rate > 60; Glucose 145 mg/dL (65-110); Potassium 4.1 mmol/L (3.4-5.0); Sodium 135 mmol/L (137-145)
--- NOTE | 2023-02-20 09:47 | PM.IMPN ---
Progress Note: A&P Assessment and Plan (1) Status post total knee replacement, left: Code(s): Z96.652 - Presence of left artificial knee joint Status: Acute (2) HTN (hypertension): Code(s): I10 - Essential (primary) hypertension Status: Acute Assessment and Plan: blood pressure reviewed on 02/20 on the low side but no immediate intervention necessary (3) Diabetes mellitus: Code(s): E11.9 - Type 2 diabetes mellitus without complications Status: Acute Assessment and Plan: blood sugars reviewed on 02/20 no changes recommended (4) Hypothyroidism: Code(s): E03.9 - Hypothyroidism, unspecified Status: Acute (5) Anxiety disorder, unspecified: Code(s): F41.9 - Anxiety disorder, unspecified Status: Acute (6) Nausea and vomiting: Code(s): R11.2 - Nausea with vomiting, unspecified Status: Acute Assessment and Plan: Patient had episode of vomiting morning of 02 20 after breakfast and after therapy session. It is likely that pain medication contributed to nausea and vomiting. She received Zofran and Pepcid we will give Pepcid each morning before breakfast. Platelets reviewed and normal. Plan Continue home medication, continue pain control.Continue Postop care per surgery recommendation Patient is pending SNF discharge on 02/22 to [facility] We will continue to be available for management of medical needs and are happy to assist. Time Spent With Patient Time with patient: 15 - 25 minutes Subjective Date/time seen: 02/20/23 09:47 Interval history: 02/20: I visited with patient this morning while she was up in the chair after breakfast. Patient states that she vomited to full bags of breakfast that it did not set well on her stomach. She did receive some Zofran ordered by Orthopedics. We will give Pepcid this morning and daily at 6:30 a.m.. It is likely that her pain medication given before therapy is contributing to her nausea vomiting. Patient denies any other complaints during review of system except pain to the operative knee. Review of Systems Review of Systems: All systems reviewed & are unremarkable except as noted in HPI and below Exam Narrative: General: Awake, alert and oriented x4, multi distress HEENT: Normocephalic atraumatic EOMI Respiratory: Clear to auscultation bilaterally Cardiovascular: Regular rate and rhythm normal no gallop Gastrointestinal: Soft, non distended, nontender, normal bowel sounds Musculoskeletal: No deformity, left knee surgical site clean and well dressed, no drainage, mild tenderness along incision site, sensation and circulation intact in all extremities Skin: No rash Neurologic: Alert and oriented x4, no focal deficit Psych: Calm, cooperative Objective Data Vital Signs Vital Signs: Vital Signs - 24 hr 02/19/23 14:17 02/19/23 20:03 02/20/23 00:23 Temperature 36.1 C L 36.4 C L 36.3 C L Pulse Rate 98 100 103 H Respiratory Rate 16 20 20 Blood Pressure 106/44 L 147/68 H 114/49 L Pulse Oximetry 95 95 94 Oxygen Delivery 02/19/23 20:20 02/20/23 05:38 02/20/23 08:20 Temperature 36.4 C Pulse Rate 98 90 Respiratory Rate 20 Blood Pressure 113/49 L Pulse Oximetry 93 Oxygen Delivery Room Air 02/20/23 08:15 Temperature Pulse Rate Respiratory Rate Blood Pressure Pulse Oximetry Oxygen Delivery Room Air Intake/Output Intake/Output: Intake & Output 02/17/23 02/18/23 02/19/23 02/20/23 23:59 23:59 23:59 23:59 Intake Total 1060 1120 510 Output Total 200 200 Balance 1060 920 310 Meds/Results Medications: Active Medications Generic Name Dose Route Start Last Admin Trade Name Freq PRN Reason Stop Dose Admin Acetaminophen 650 mg 02/18/23 16:00 02/20/23 08:21 Acetaminophen 325 Mg Tablet PO 650 mg Q4H DIONI Administration Alprazolam 0.25 mg 02/18/23 17:17 02/19/23 20:35 Alprazolam (*Crx) 0.25 Mg Tablet
[2023-02-20] MEDS: FAMOTIDINE 20 MG TABLET PO (10:20)
[2023-02-20 11:57] LABS: Glucose Point of Care 130 mg/dl (65-105)
[2023-02-20 14:12] VITALS: BP 115/54; PULSE 95; RESP 19; TEMP 36.4; O2SAT 93
[2023-02-20 17:14] LABS: Glucose Point of Care 108 mg/dl (65-105)
[2023-02-20 19:52] LABS: Glucose Point of Care 143 mg/dl (65-105)
[2023-02-20 19:53] VITALS: BP 111/65; PULSE 98; RESP 20; TEMP 36.9; O2SAT 94
[2023-02-20] MEDS: ROSUVASTATIN 20 MG TABLET PO (20:19)
[2023-02-20] MEDS: PARoxetine 20 MG TABLET PO (20:19)
[2023-02-20] MEDS: MELATONIN 5 MG TABLET 20 MG PO (20:20)
[2023-02-21] MEDS: ACETAMINOPHEN 325 MG TABLET 650 MG PO ×7 (00:21→23:56)
[2023-02-21 04:32] VITALS: BP 132/58; PULSE 93; RESP 20; TEMP 36.3; O2SAT 92
[2023-02-21] MEDS: FAMOTIDINE 20 MG TABLET PO (05:32)
[2023-02-21] MEDS: LEVOTHYROXINE SODIUM 75 MCG TABLET PO (05:32)
[2023-02-21] MEDS: polyethylene glycoL 3350 17 GM POWD.PACK PO (08:17)
[2023-02-21] MEDS: DOXYCYCLINE HYCLATE 100 MG TABLET PO ×2 (08:17→21:31)
[2023-02-21] MEDS: APIXABAN 2.5 MG TABLET PO ×2 (08:17→21:31)
[2023-02-21] MEDS: carvediloL 3.125 MG TABLET PO (08:17)
[2023-02-21] MEDS: metFORMIN HCL 500 MG TABLET PO ×2 (08:17→16:33)
[2023-02-21] MEDS: SENNA/DOCUSATE SODIUM TABLET 2 TAB PO ×2 (08:17→16:33)
--- NOTE | 2023-02-21 08:35 | PCPTNOTE ---
Attemtped to see pt at 830, pt declined due to no sleep all night. Pt was leaning to her R side CLIENT PROGRAM MANAGER adjusted pt to her comfort and closed blinds so she could sleep. Informed pt CLIENT PROGRAM MANAGER would come back later this morning because she has 2 visits today AM and PM. pt requested CLIENT PROGRAM MANAGER come back after 2pm therapist informed her she still had to have another session this morning and would come back later this AM, pt stated she probably wont do it then.
[2023-02-21 08:37] LABS: Glucose Point of Care 118 mg/dl (65-105)
--- NOTE | 2023-02-21 10:38 | PCPTNOTE ---
2nd attempted at 10:33 pt adamantly refused therapy stating she needs to sleep. She stated she has been throwing up in her mouth and has had diarhea all morning. Discussed with nursing and they reported there has been no clean up for either of these issues this morning. Pt was educated on importance of complying with therapy for DC however pt refused stating she did not care I have to sleep .
[2023-02-21 12:08] LABS: Glucose Point of Care 102 mg/dl (65-105)
--- NOTE | 2023-02-21 12:12 | PM.DS ---
DS: Admitting Diagnosis Discharge Date 02/22/2023 Admitting Diagnosis Osteoarthritis left knee DS: Discharge Diagnosis Discharge Diagnosis Plan Discharged to [facility] for group home care since patient has no one to take care of her at home and she needs help due to her borderline morbid obesity and anxiety. DS: Summary Hospital Course Hospital Course: Patient underwent left total knee arthroplasty on February 18 2023. Her postoperative course has been fairly unremarkable although she has progressed slowly. Her chief complaint was that she did not sleep last night. She was not having any pain in bed nor does she have pain in the chair she only has pain in the knee with walking now. She refused her physical therapy this morning at 10:00 a.m.. However, now, at 12:12 p.m., I asked her to use show me if she can stand up and walk around and she did so very well and feels she is doing much better now. Her dressing is dry without any drainage. She has mild diffuse swelling in the knee with ecchymosis as expected. Her hemoglobin is 12.8 today. She does take melatonin has a long history of difficulty falling asleep and I recommend that she try to avoid napping during the day and trying wake up early that may help her fall asleep better at night. Her renal function has improved during her hospitalization and her GFR today is greater than 60 creatinine 0.8. Her GFR was 48 before surgery, and creatinine 1.1 before surgery. I have talked her about drinking enough fluids which may be the culprit. Her bone density was diminished at time of surgery and 25 hydroxy vitamin-D level was less than 12 so I have prescribed 50,000 ergo calciferol Q week for 8 weeks. I am also going to place her on Citracal plus D 1 tablet twice daily and I would recommend we obtain a bone density test as an outpatient I have discussed this with her. I would like her to use a walker for least 4 weeks for a little added protection. The nurse advised me that she was advised by the respiratory care specialist that because of insurance reasons she cannot go to [facility] until tomorrow. Status at Discharge Cognitive/behavioral status at discharge: She has anxiety but has been alert and oriented. Time Spent with Patient Time attestation: Total time spent providing and/or coordinating discharge services: DS: Data Data Completed and Pending Labs on day of discharge: Labs from last 24 hours 02/21/23 02/21/23 02/20/23 11:44 08:34 19:47 POC Capillary Glucose 102 118 H 143 H 02/20/23 17:11 POC Capillary Glucose 108 H Discharge Plan Discharge Attending physician on discharge: Giorgio Duke Consulting providers: Duc Calvin Discharging Clinician: Narendra Cabrera Anticipated Discharge Date/Time: 02/21/23 13:08 Patient Disposition: [facility] Activity: may shower, follow weight bearing status and other - see discharge instructions Diet: as tolerated Wound Care Instructions: other - see discharge instructions Discharge Instructions: GIORGIO DUKE M.D [facility], [place] [id number] [address] POST-OPERATIVE DISCHARGE INSTRUCTIONS TOTAL KNEE ARTHROPLASTY 1. When resting, do not rest in the chair.When resting, lie on your back, with back flat on the couch or bed, with leg elevated above heart to minimize swelling. You may put a pillow under your head. . Significant swelling could indicate a blood clot and if this occurs call the office (or go to the ER) to have a venous ultrasound. Therefore, do not rest in a chair. 2. At least five times a day spend several minutes stretching your knee into flexion while sitting in the chair and also stretching your knee out straight The abilities to bend your knee fulling and straighten your knee fully are two most important knee functions to focus on during your recovery. 3. It is ok to sit in chair to eat, use the to
[2023-02-21 15:24] VITALS: BP 130/65; PULSE 101; RESP 16; TEMP 35.9; O2SAT 98
[2023-02-21 16:38] LABS: Glucose Point of Care 109 mg/dl (65-105)
[2023-02-21 19:43] VITALS: BP 129/62; PULSE 98; RESP 16; TEMP 36.6; O2SAT 96
[2023-02-21 20:00] VITALS: PULSE 98; RESP 16; O2SAT 96
[2023-02-21 20:44] LABS: Glucose Point of Care 108 mg/dl (65-105)
[2023-02-21] MEDS: ROSUVASTATIN 20 MG TABLET PO (21:31)
[2023-02-21] MEDS: MELATONIN 5 MG TABLET 20 MG PO (21:31)
[2023-02-21] MEDS: PARoxetine 20 MG TABLET PO (21:31)
[2023-02-22 04:21] VITALS: BP 130/59; PULSE 88; RESP 18; TEMP 36.8; O2SAT 95
[2023-02-22] MEDS: FAMOTIDINE 20 MG TABLET PO (05:58)
[2023-02-22] MEDS: LEVOTHYROXINE SODIUM 75 MCG TABLET PO (05:58)
[2023-02-22] MEDS: ACETAMINOPHEN 325 MG TABLET 650 MG PO ×3 (05:58→11:20)
[2023-02-22] MEDS: carvediloL 3.125 MG TABLET PO (08:14)
[2023-02-22] MEDS: metFORMIN HCL 500 MG TABLET PO (08:14)
[2023-02-22] MEDS: SENNA/DOCUSATE SODIUM TABLET 2 TAB PO (08:14)
[2023-02-22] MEDS: APIXABAN 2.5 MG TABLET PO (08:14)
[2023-02-22] MEDS: DOXYCYCLINE HYCLATE 100 MG TABLET PO (08:15)
[2023-02-22] MEDS: polyethylene glycoL 3350 17 GM POWD.PACK PO (08:15)
[2023-02-22 08:36] LABS: Glucose Point of Care 110 mg/dl (65-105)
--- NOTE | 2023-02-22 10:12 | PM.PNORT ---
Progress Note: A&P Assessment and Plan (1) Status post total knee replacement, left: Code(s): Z96.652 - Presence of left artificial knee joint Status: Acute Assessment and Plan: Patient is postop day 4. After left total knee arthroplasty. She is very cheerful today. She slept a couple of hours last night which is more the night before. She is very alert oriented and states she walked around the entire unit out in the guy today with physical therapy and did very well. Her pain is well controlled with the Tylenol and the 2.5 mg oxycodone so. Her wound dressing has no blood on it. She has mild swelling in the knee and minimal swelling in the calf little bit less than yesterday. She does have diffuse mild ecchymosis in the calf and medial knee which is typical. She feels very confident about her progress now and is ready for discharge to [facility] today. Subjective Subjective Date/Time Seen: 02/22/23 10:13 Objective Data Vital Signs Vital Signs: Vital Signs - 24 hr 02/21/23 15:24 02/21/23 19:43 02/21/23 20:00 Temperature 35.9 C L 36.6 C Pulse Rate 101 H 98 98 Respiratory Rate 16 16 16 Blood Pressure 130/65 129/62 Pulse Oximetry 98 96 96 Oxygen Delivery Room Air 02/22/23 04:21 02/22/23 08:15 Temperature 36.8 C Pulse Rate 88 Respiratory Rate 18 Blood Pressure 130/59 L Pulse Oximetry 95 Oxygen Delivery Room Air Intake/Output Intake/Output: Intake & Output 02/19/23 02/20/23 02/21/23 02/22/23 23:59 23:59 23:59 23:59 Intake Total 1120 1440 1250 350 Output Total 200 1150 700 600 Balance 920 290 550 -250 Meds/Results Medications: Active Medications Generic Name Dose Route Start Last Admin Trade Name Freq PRN Reason Stop Dose Admin Acetaminophen 650 mg 02/18/23 16:00 02/22/23 08:14 Acetaminophen 325 Mg Tablet PO 650 mg Q4H DIONI Administration Alprazolam 0.25 mg 02/18/23 17:17 02/19/23 20:35 Alprazolam (*Crx) 0.25 Mg Tablet PO 0.25 mg DAILY PRN Administration Anxiety Apixaban 2.5 mg 02/19/23 09:00 02/22/23 08:14 Apixaban 2.5 Mg Tablet PO 2.5 mg Q12HR DIONI Administration Calcium Citrate 1 tablet 02/19/23 17:00 02/21/23 16:33 Calcium Citrate 315 Mg/Vitamin D 250 Units Tab PO 1 tablet BID@1200,1700 DIONI Administration Carvedilol 3.125 mg 02/19/23 09:00 02/22/23 08:14 Carvedilol 3.125 Mg Tablet PO 3.125 mg DAILY DIONI Administration Dextrose 12.5 gm 02/18/23 17:17 Dextrose 50% 25 Gm/50 Ml Syringe IV PUSH PRN PRN Hypoglycemia Protocol Diphenhydramine HCl 50 mg 02/18/23 17:17 Diphenhydramine Hcl Cap 25 Mg Capsule PO HS PRN Insomnia Doxycycline Hyclate 100 mg 02/19/23 21:00 02/22/23 08:15 Doxycycline Hyclate 100 Mg Tablet PO 03/03/23 20:59 100 mg Q12HR DIONI Administration Ergocalciferol 50,000 units 02/19/23 13:05 02/19/23 13:23 Ergocalciferol 50,000 Units Capsule PO 04/09/23 09:01 50,000 units WEEKLY DIONI Administration Famotidine 20 mg 02/20/23 09:40 02/22/23 05:58 Famotidine 20 Mg Tablet PO 20 mg DAILY@0630 DIONI Administration Gemfibrozil 600 mg 02/18/23 17:17 Gemfibrozil 600 Mg Tablet PO BID DIONI Glucagon 1 mg 02/18/23 17:17 Glucagon For Inj 1 Mg Vial IM PRN PRN Hypoglycemia Protocol Glucose 15 gm 02/18/23 17:17 Glucose Oral Gel 15 Gm Of Glucse In 37.5 Gm Tube PO PRN PRN Hypoglycemia Protocol Dextrose 1,000 mls @ 100 mls/hr 02/18/23 17:17 Dextrose 5% 1,000 Ml IVPB PRN PRN Hypoglycemia Protocol Levothyroxine Sodium 75 mcg 02/19/23 06:30 02/22/23 05:58 Levothyroxine Sodium 75 Mcg Tablet PO 75 mcg DAILY@0630 DIONI Administration Melatonin 20 mg 02/18/23 21:00 02/21/23 21:31 Melatonin 5 Mg Tablet PO 20 mg QHS DIONI Administration Metformin HCl 500 mg 02/18/23 17:17 02/22/23 08:14 Metformin Hcl 500 Mg Tablet PO 500 mg BID DIONI Adminis
[2023-02-22 12:05] LABS: Glucose Point of Care 111 mg/dl (65-105)
[2023-02-22 12:05] LABS: SARS-CoV-2 RNA PCR Negative (Negative)
== END 2023-02-22 13:32 | DRG 470 ==
LOC: ANHSURGERY 16:06 → ANH2MED 16:06
PROVIDERS: Nurse Practitioner; Admitting Provider Orthopaedic Surgery; PCP Family Medicine Adolescent Medicine; Visit Provider Orthopaedic Surgery
PROC: 0SRD0J9 Replacement of Left Knee Joint with Synthetic Substitute, Cemented, Open Approach (ICD-10-PCS; CPT 27447; principal; 2023-02-18 12:00)
DX: M17.12 Unilateral primary osteoarthritis, left knee (principal); I12.9 Hypertensive chronic kidney disease with stage 1 through stage 4 chronic kidney disease, or unspecified chronic kidney disease; N18.9 Chronic kidney disease, unspecified; E11.22 Type 2 diabetes mellitus with diabetic chronic kidney disease; E00.9 Congenital iodine-deficiency syndrome, unspecified; K57.30 Diverticulosis of large intestine without perforation or abscess without bleeding; R11.2 Nausea with vomiting, unspecified; G47.33 Obstructive sleep apnea (adult) (pediatric); F41.9 Anxiety disorder, unspecified; F32.A Depression, unspecified; Z96.651 Presence of right artificial knee joint; Z11.52 Encounter for screening for COVID-19
CPT/HCPCS: 36415; 73560; 80048; 80053; 82306; 82948; 85025; 85027; 86850; 86900; 86901; 87635; 97110; 97116; 97161; 97165; 97530; 97535; A9270; C1713; C1776; J0171; J0360; J0690; J1100; J1170; J2270; J2371; J2405; J2704; J2795; J3010; J3370; J7120